=== PATIENT | male | born 1955 | race Caucasian/White ===

== ENCOUNTER → 2019-12-24 10:54 | Outpatient (BNVA) | payer MEDICARE, MEDICAID, SELFPAY | PROVIDERS: Family Provider Internal Medicine; PCP Internal Medicine; Visit Provider Specialist | DX: G40.309 Generalized idiopathic epilepsy and epileptic syndromes, not intractable, without status epilepticus (principal) | CPT/HCPCS: 99213 ==

== ENCOUNTER 2021-03-24 12:17 | Outpatient (CLI) | payer MEDICARE, MEDICAID, SELFPAY ==
--- NOTE | 2021-03-24 13:00 | MR_ITS ---
WS: [id number] MRI HEAD WITHOUT CONTRAST TECHNIQUE: Sagittal T1, T2 axial, T2 axial FLAIR, axial and coronal T1 images, axial susceptibility w eighted imaging, axial diffusion weighted images, and coronal T2 images were obtained. Patient unable to finish examination. Contrast was not administered. CLINICAL INFORMATION: R56.9 - Unspecified convulsions COMPARISON: MRI 2010. CT 2013 FINDINGS: No evidence of restricted diffusion to suggest acute ischemia. Ventricular system and basal cisterns are patent. Mild small vessel changes. Moderate to advanced parenchymal volume loss. Parenchymal volu me loss has progressed since 2010. No extra-axial fluid collections. No evidence of mass or mass effe ct. Normal posterior fossa. Normal vascular flow voids. No extra-axial fluid collections. No evidence of mass or mass effect. Mastoid air cells are well aerated. Mild mucosal thickening in the paranasal sin uses more prominent right maxillary sinus. Normal optic chiasm and pituitary infundibulum. Normal cav ernous sinuses and Meckel's cave. 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 No hemosiderin on susceptibly weighted images. MR/MR head wo con* [id number] IMPRESSION: 1. No evidence of restricted diffusion to suggest acute ischemia. 2. Mild small vessel changes. Moderate to advanced parenchymal volume loss pro gressed since 2010. 3. No hemosiderin on susceptibly weighted images. 4. 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 No signal abnormalities in the mesial temporal lobes. 5. Normal optic chiasm and pituitary infundibulum.
== END 2021-03-24 12:18 | disposition home or self-care (01) ==
LOC: RADSHAW 12:27
PROVIDERS: Family Provider Internal Medicine; PCP Internal Medicine; Visit Provider Internal Medicine
DX: R56.9 Unspecified convulsions (principal); G31.9 Degenerative disease of nervous system, unspecified
CPT/HCPCS: 70551

== ENCOUNTER 2021-07-08 16:01 | Outpatient (CLI) | payer MEDICARE, MEDICAID, SELFPAY ==
[2021-07-08 16:54] LABS: Carbamazepine Tegretol 5.9 ug/mL (4.0-12.0)
== END 2021-07-08 16:02 | disposition home or self-care (01) ==
LOC: LAB 16:06
PROVIDERS: PCP Internal Medicine; Visit Provider Internal Medicine
DX: G40.909 Epilepsy, unspecified, not intractable, without status epilepticus (principal)
CPT/HCPCS: 80156; 80184; 80201

== ENCOUNTER 2021-12-27 08:10 | Outpatient (CLI) | payer MEDICARE, MEDICAID, SELFPAY ==
--- NOTE | 2021-12-27 08:16 | FL_ITS ---
WS: [id number] FL barium swallow modifd [id number] REASON FOR EXAM: Other dysphagia FLUOROSCOPY TIME: 0.7 minutes FINDINGS: The swallowing of barium of varying consistencies was evaluated fluoroscopically with video recording . There was penetration of the contrast anterior to the epiglottis with both thin and thick consistency barium. No aspiration was identified. Detailed report of the swallowing evaluation will be rendered by the speech therapy department. FL/FL barium swallow modifd [id number] IMPRESSION: Barium swallow evaluation as above.
== END 2021-12-27 08:11 | disposition home or self-care (01) ==
PROVIDERS: PCP Internal Medicine; Visit Provider Internal Medicine
DX: R13.19 Other dysphagia (principal)
CPT/HCPCS: 74230; 92611

== ENCOUNTER 2022-03-23 09:29 | Emergency (ER) | payer MEDICARE, MEDICAID, SELFPAY ==
[2022-03-23] VITALS (8 sets, daily range): BP systolic 99–144; BP diastolic 68–97; PULSE 71–78; RESP 10–17; TEMP 36.9; O2SAT 94–100; BMI 24.0
--- NOTE | 2022-03-23 09:38 | W.ED.GENADLT ---
HPI - General Adult General: Chief complaint: Nausea/Vomiting/Diarrhea Stated complaint: MASS ON NECK/ DIFFICULTY SWALLOWING Time Seen by Provider: 03/23/22 09:32 Source: patient Mode of arrival: EMS Limitations: no limitations History of Present Illness: 58-year-old male presents emergency room via EMS from a local half-way. He has a obvious right-sided paralaryngeal mass he states its come up over the last several weeks. He did have some difficulty swallowing in December and had a barium swallow study that appears to been read as normal on the chart. He denies any hematemesis coffee-ground emesis he still is able to swallow although he had a little bit of difficulty this morning which is what precipitated the half-way calling EMS and sending him to the emergency room. He denies any cough or shortness of breath at this time he does have a rather hoarse voice but states that that is unchanged from his baseline. He is a former smoker denies any history of chewing tobacco. He quit smoking several decades ago. Onset (ago): week(s) Location: neck Radiation: non-radiation Severity: moderate Relieving factors: none Exacerbating factors: none Associated symptoms: Reports cough; Deny chest pain, confusion, diaphoresis, decreased appetite, dyspnea, fevers/chills, headache(s), malaise, nausea, rash, palpitations, seizures, short of breath, syncope, vomiting or weakness Treatments prior to arrival: none Review of Systems Const: Denies: fever(s), chills, body aches, malaise or diaphoresis ENMT: Reports: hoarseness; Denies: throat pain, uvular edema, enlarged tonsils, odynophagia, mouth pain, swelling of lips/tongue, oral sores, bleeding gums, ear or mastoid pain, nasal discharge or nasal congestion Card: Denies: chest pain, palpitations or syncope Resp: Denies: dyspnea GI: Denies: abdominal pain, nausea, vomiting, hematemesis, coffee ground emesis, dysphagia, heartburn, early satiety, diarrhea, constipation, bloating or GI cramping : Denies: flank pain, difficulty urinating, dysuria, urinary frequency or urinary urgency Musc: Denies: neck pain Skin/Breast: Denies: rash or pruritus Neuro: Denies: headache(s), numbness in extremities, weakness in extremities or confusion PFSH ED PFSH: Medical History (Updated 03/23/22 @ 12:32 by Calderon Wagner DO) Hypertension Stroke Family History Other CAD (coronary artery disease) Cancer Diabetes Hypertension Stroke Social History Smoking and tobacco status: former smoker Quit status (tobacco): has quit using tobacco Year quit tobacco: 2013 Alcohol intake: never History of recent travel: No Physical Exam Const: COMMON NORMALS: no acute distress GENERAL APPEARANCE: cooperative and comfortable ORIENTATION/CONSCIOUSNESS: Yes awake, Yes oriented to person, Yes oriented to place and Yes oriented to time HENMT: COMMON NORMALS: normocephalic, atraumatic and hearing grossly normal bilaterally HEAD & SCALP: normocephalic and atraumatic THROAT: no uvular edema Neck/C-Spine: COMMON NORMALS: no JVD and Thyroid normal GENERAL: No lymphadenopathy and Yes Mass present (neck) right (Paralaryngeal) THYROID: Thyroid normal Resp: COMMON NORMALS: normal respiratory effort, No retractions, No use of accessory muscles and clear to auscultation bilaterally AUSCULTATION: clear to auscultation bilaterally Cardio: COMMON NORMALS: no JVD, regular rate, regular rhythm and No murmurs present (Cardio) RATE: regular rate RHYTHM: regular rhythm GI: COMMON NORMALS: Soft to palpation and No hepatosplenomegaly present AUSCULTATION: Yes normoactive bowel sounds PALPATION: Yes Soft to palpation, No Tenderness to palpation present (GI), No Guarding due to palpation present (GI) and Yes No hepatosplenomegaly present Extremity: COMMON NORMALS: normal to inspection, capillary refill normal, no clubbing, cyanosis or edema, no calf tenderness and no pedal edema Neuro: SENSORIUM/ORIENTATION: Yes oriented to person, Yes oriented to place and Yes oriented to time Skin: COMMON NORMALS: no rashes or lesions noted GENERAL SKIN EXAM: no rashes or lesions noted Course Vital Signs: Vital signs: Vital Signs Temperature 98.4 F 03/23/22 09:35 Pulse Rate 71 03/23/22 10:43 Respiratory Rate 16 03/23/22 10:43 Blood Pressure 119/85 03/23/22 10:43 Pulse Oximetry 94 03/23/22 10:43 MDM - General Adult Medical Decision Making CT of the neck shows cystic mass suspicious for tumor. Does not impinge on airway or on the esophagus or any vascular structures. Patient doing well at this time will discharge home follow-up with ENT for further evaluation Medical Records I reviewed the patient's medical records. Lab Data I reviewed the patient's lab results. : 03/23/22 09:48 03/23/22 10:[address] 03/23/22 09:42 IMPRESSION: 1. Peripherally enhancing low-attenuation cystic or necrotic RIGHT neck mass posterior to the RIGHT submandibular gland and anterior to the sternocleidomastoid measuring 2.8 x 2.1 x 2.1 cm highly suspicious for malignancy or necrotic lymph node measuring patient this age. Less likely an infected 2nd branchial cleft cyst can give a similar appearance but neoplasm should be excluded primarily in a patient this age 2. 2 additional smaller surrounding enhancing lesions measuring 9-10 mm respectively at the apex of the lesion support suspicion for neoplasm. Recommend ENT consultation. 3. No other visualized neck mass or lymphadenopathy considering limitations. 4. Limited evaluation of the oropharynx and supraglottic larynx due to beam hardening artifact and positioning due to marked kyphosis. 5. Bilateral thyroid nodules LEFT greater than RIGHT. This can be followed with ultrasound on an elective basis. 6. Moderate bilateral carotid bulb calcification RIGHT greater than LEFT. 7. Inspissated secretions in the RIGHT maxillary sinus. Notified Calderon Wagner DO at 03/23/2022 12:34 PM. Laboratory Results WBC 6.6 10^3/uL (4.0-10.0) 03/23/22 09:48 RBC 4.75 10^6/uL (4.1-5.3) 03/23/22 09:48 Hgb 14.7 g/dL (11.7-16.6) 03/23/22 09:48 Hct 44.5 % (42.0-52.0) 03/23/22 09:48 MCV 93.7 fl (80-94) 03/23/22 09:48 MCH 30.9 pg (28.0-34.0) 03/23/22 09:48 MCHC 33.0 g/dL (30.0-36.0) 03/23/22 09:48 RDW 12.2 % (12.1-15.1) 03/23/22 09:48 Plt Count 248 10^3/cmm (130-400) 03/23/22 09:48 MPV 8.9 fL (7.4-10.4) 03/23/22 09:48 Neut % (Auto) 71.7 % 03/23/22 09:48 Lymph % (Auto) 18.3 % 03/23/22 09:48 [place] % (Auto) 8.4 % 03/23/22 09:48 Eos % (Auto) 0.8 % 03/23/22 09:48 Baso % (Auto) 0.5 % 03/23/22 09:48 Neut # (Auto) 4.70 10^3/uL (1.8-7.7) 03/23/22 09:48 Lymph # (Auto) 1.2 10^3/uL (0.8-4.8) 03/23/22 09:48 [place] # (Auto) 0.6 10^3/uL (0.2-0.9) 03/23/22 09:48 Eos # (Auto) 0.1 10^3/uL (0.0-0.8) 03/23/22 09:48 Baso # (Auto) 0.0 10^3/uL (0.0-0.1) 03/23/22 09:48 Nucleated RBC % (auto) 0 % 03/23/22 09:48 Nucleated RBCs # 0.0 /100WBC 03/23/22 09:48 Sodium 136 mmol/L (136-145) 03/23/22 10:48 Potassium 3.8 mmol/L (3.5-5.1) 03/23/22 10:48 Chloride 99 mmol/L (98-107) 03/23/22 10:48 Carbon Dioxide 24 mmol/L (22-29) 03/23/22 10:48 Anion Gap 16.8 (5-19) 03/23/22 10:48 BUN 10 mg/dL (8-23) 03/23/22 10:48 Creatinine 0.8 mg/dL (0.7-1.2) 03/23/22 10:48 GFR Calculation 96.1 mL/min (90-130) 03/23/22 10:48 Glucose 96 mg/dL (65-115) 03/23/22 10:48 Calculated Osmolality 281 mOsm/kg (285-295) L 03/23/22 10:48 Calcium 9.4 mg/dL (8.5-10.5) 03/23/22 10:48 Total Bilirubin 0.4 mg/dL (0.15-1.2) 03/23/22 10:48 AST 27 U/L (0-40) 03/23/22 10:48 ALT 24 U/L (0-41) 03/23/22 10:48 Alkaline Phosphatase 164 IU/L (40-130) H 03/23/22 10:48 Total Protein 7.6 g/dL (6.6-8.7) 03/23/22 10:48 Albumin 4.0 g/dL (3.5-5.2) 03/23/22 10:48 Globulin 3.6 g/dL (1.3-4.6) 03/23/22 10:48 Carbamazepine 5.2 ug/mL (4.0-12.0) 03/23/22 10:48 Phenobarbital 23.1 ug/mL (10-30) 03/23/22 10:48 Discharge Plan Discharge Patient Disposition: Home Clinical Impression: Mass of right side of neck Condition: Stable Prescriptions: No Action nystatin 100,000 unit/mL suspension 10 ml buccal DAILY Qty: 480 0RF fluticasone propionate [Flonase Allergy Relief] 50 mcg/actuation spray,suspension 1 spray intranasal BID Qty: 16 0RF Rx Instructions: administer into each nostril Chloraseptic Max Sore Throat 1.5-33 % spray,non-aerosol 1 spray mucous membrane Q2H PRN (Reason: sore throat) Qty: 30 0RF Rx Instructions: leave on area for 15 seconds then spit out doxycycline monohydrate 100 mg capsule 100 mg PO BID 7 Days Qty: 14 0RF fidaxomicin 200 mg tablet 200 mg PO Q12H 10 Days Qty: 20 0RF phenobarbital 64.8 mg tablet 64.8 mg PO BID Qty: 60 3RF carbamazepine [Tegretol] 200 mg tablet 200 mg PO TID Qty: 90 2RF citalopram [Celexa] 20 mg tablet 20 mg PO DAILY Qty: 30 2RF topiramate [Topamax] 100 mg tablet 100 mg PO BID Qty: 60 2RF gabapentin [Neurontin] 600 mg tablet 600 mg PO BID Qty: 60 2RF Discharge Orders: Discharge ED (Routine); Ordered 03/23/22 Ordered By: Calderon Wagner Referrals: Dennis Helton MD [Primary Care Provider] - Discharge Diet: Usual diet Discharge Activity: Resume usual activity Patient Instructions: Opioid Safety Activity Restrictions/Additional Instructions: manager business banking will make arrangements for follow-up with ENT for further evaluation of the mass. Coding Level of Care Code ED Resident Services Director for Chg Fwd Exam Comprehensive
--- NOTE | 2022-03-23 09:42 | CT_ITS ---
WS: [id number] CT NECK TECHNIQUE: Contrast-enhanced CT of the neck with coronal and sagittal reformatted images. CLINICAL INFORMATION: R paralyngeal mass COMPARISON: None. DLP: 471.[address] scans at [facility] use at least one of these dose optimization techniques: automated e xposure control; mA and/or kV adjustment per patient size (includes targeted exams where dose is matc hed to clinical indication); or iterative reconstruction. FINDINGS: Peripherally enhancing cystic or necrotic lesion posterior to the RIGHT submandibular gland and anter ior to the RIGHT sternocleidomastoid with peripheral rim enhancement. This measures approximately 2.8 x 2.1 x 2.1 cm AP by transverse by craniocaudal. Images are limited due to marked patient kyphosis a nd positioning. Minimal mass effect on the RIGHT hypopharynx. No critical pharyngeal stenosis. Additional smaller peripheral enhancing satellite lesions along the apex of the mass measuring 10 and 9 mm respectively. Images are degraded at the tongue base due to beam hardening artifact and positio arvind. Chronic emphysematous changes in the lung apices. Inspissated secretions in the RIGHT maxillary sinus . Secretions in the LEFT sphenoid sinus. Mastoid air cells are well aerated. Partially visualized int racranial contents appear normal for age. Intracranial vascular calcification. Moderate RIGHT greater than LEFT carotid bulb calcification. No left-sided cervical lymphadenopathy. No other visualized en larged lymph nodes. Heterogeneous low-attenuation lesion LEFT thyroid measuring 1.7 CM. This can be followed up with ultr asound on an elective basis. Small enhancing lesion RIGHT thyroid measuring 9 mm. Normal visualized parapharyngeal fat considering limitations. Normal visualized posterior nasopharynx . Limited visualization of the posterior oropharynx due to artifact. Epiglottis appears grossly yamilet l. Normal subglottic airway. Advanced thoracic kyphosis. CT/CT neck w con* [id number] IMPRESSION: 1. Peripherally enhancing low-attenuation cystic or necrotic RIGHT neck mass p osterior to the RIGHT submandibular gland and anterior to the sternocleidomasto id measuring 2.8 x 2.1 x 2.1 cm highly suspicious for malignancy or necrotic ly mph node measuring patient this age. Less likely an infected 2nd branchial clef t cyst can give a similar appearance but neoplasm should be excluded primarily in a patient this age 2. 2 additional smaller surrounding enhancing lesions measuring 9-10 mm respec tively at the apex of the lesion support suspicion for neoplasm. Recommend ENT consultation. 3. No other visualized neck mass or lymphadenopathy considering limitations. 4. Limited evaluation of the oropharynx and supraglottic larynx due to beam juan rdening artifact and positioning due to marked kyphosis. 5. Bilateral thyroid nodules LEFT greater than RIGHT. This can be followed wit h ultrasound on an elective basis. 6. Moderate bilateral carotid bulb calcification RIGHT greater than LEFT. 7. Inspissated secretions in the RIGHT maxillary sinus. Notified Calderon Wagner DO at 03/23/2022 12:34 PM.
[2022-03-23 10:06] LABS: Basophils % 0.5 %; Eosinophils # 0.1 10^3/uL (0.0-0.8); Eosinophils % 0.8 %; Hematocrit 44.5 % (42.0-52.0); Hemoglobin 14.7 g/dL (11.7-16.6); Lymphocytes # 1.2 10^3/uL (0.8-4.8); Lymphocytes % 18.3 %; Mean Corpuscular Hemoglobin 30.9 pg (28.0-34.0); Mean Corpuscular Volume 93.7 fl (80-94); Mean Platelet Volume 8.9 fL (7.4-10.4); Monocytes # 0.6 10^3/uL (0.2-0.9); Monocytes % 8.4 %; Neutrophils % 71.7 %; Nucleated Red Blood Cells % 0 %; Platelet Count 248 10^3/cmm (130-400); Red Blood Count 4.75 10^6/uL (4.1-5.3); Red Cell Distribution Width 12.2 % (12.1-15.1); White Blood Count 6.6 10^3/uL (4.0-10.0)
[2022-03-23 11:32] LABS: Alanine Aminotransferase 24 U/L (0-41); Alkaline Phosphatase 164 IU/L (40-130); Aspartate Amino Transferase 27 U/L (0-40); Blood Urea Nitrogen 10 mg/dL (8-23); Calcium 9.4 mg/dL (8.5-10.5); Carbon Dioxide 24 mmol/L (22-29); Chloride 99 mmol/L (98-107); Globulin 3.6 g/dL (1.3-4.6); Glomerular Filtration Rate 96.1 mL/min (90-130); Glucose 96 mg/dL (65-115); Osmolality Calculated 281 mOsm/kg (285-295); Sodium 136 mmol/L (136-145); Total Bilirubin 0.4 mg/dL (0.15-1.2); Total Protein 7.6 g/dL (6.6-8.7)
[2022-03-23 11:36] LABS: Anion Gap 16.8 (5-19); Potassium 3.8 mmol/L (3.5-5.1)
[2022-03-23] MEDS: iohexol 350 mg/mL 100 mL Btl IV (12:05)
[2022-03-23 12:42] LABS: Carbamazepine Tegretol 5.2 ug/mL (4.0-12.0)
--- NOTE | 2022-03-23 13:16 | PC.NURSE ---
report to Cierra CONTE at [facility] mentioned that sending him to the ED will speed up his appointment now.
--- NOTE | 2022-03-23 14:05 | PC.NURSE ---
patient continues to wait on transport - called at approx 1300
--- NOTE | 2022-03-24 22:42 | DCPLANNER ---
Addendum entered by Abigail Barlow 04/07/22 14:13: Patient had a follow up appointment scheduled for 03.28.22 with ENT - patient did attend appointment. Original Note: partnership manager had message to schedule a follow up appointment for patient with ENT. partnership manager sent patients information to the front office staff of ENT. Patients information will be printed and reviewed. Clinic will call patient with appointment information.
== END 2022-03-23 15:00 | disposition home or self-care (01) ==
PROVIDERS: Emergency Provider Family Medicine; PCP Internal Medicine
DX: R22.1 Localized swelling, mass and lump, neck (principal); I10 Essential (primary) hypertension; Z87.891 Personal history of nicotine dependence; Z86.73 Personal history of transient ischemic attack (TIA), and cerebral infarction without residual deficits
CPT/HCPCS: 70491; 80053; 80156; 80184; 85025; 99283; Q9967

== ENCOUNTER → 2022-03-28 14:25 | Outpatient (BNVA) | payer MEDICARE, MEDICAID, SELFPAY | PROVIDERS: PCP Internal Medicine; Visit Provider Otolaryngology | DX: R22.1 Localized swelling, mass and lump, neck (principal); M40.209 Unspecified kyphosis, site unspecified; Z87.891 Personal history of nicotine dependence | CPT/HCPCS: 99204 ==

== ENCOUNTER 2022-04-13 11:04 | Day surgery (SDC) | payer MEDICARE, MEDICAID, SELFPAY ==
[2022-04-11 10:24] VITALS: BMI 24.7
[2022-04-13] VITALS (7 sets, daily range): BP systolic 102–142; BP diastolic 68–89; PULSE 69–85; RESP 14–18; TEMP 36.3–36.6; O2SAT 90–98
--- NOTE | 2022-04-13 11:48 | US_ITS ---
WS: [id number] ULTRASOUND-GUIDED RIGHT NECK MASS BIOPSY. INDICATION: RIGHT neck mass TECHNIQUE: Prior imaging was reviewed. The procedure including risks, benefits, and complications wer e discussed with the patient who agreed to proceed. Timeout was performed and all team members verifi ed. Using sterile technique, patient was prepped and draped in usual sterile fashion. After 1% lidoca ine, in combination with conscious sedation, multiple core biopsies were obtained with initially a 20 -gauge followed by 18-gauge Temno biopsy device. No immediate complications. Pathology is pending. US/US biopsy muscle IMPRESSION: 1. Uncomplicated RIGHT neck mass ultrasound-guided biopsy with multiple core b iopsies obtained 2. Pathology is pending.
[2022-04-13] MEDS: sodium chloride 0.9% 1,000 ML 30 ML IV (12:11)
[2022-04-13 13:06] LABS: INR 1.21 (0.8-1.2)
[2022-04-13] MEDS: fentaNYL 50 mcg/mL INJ 2mL 25 MCG IVP (13:19)
[2022-04-13] MEDS: midazolam 1 mg/mL INJ 2 mL IVP (13:20)
[2022-04-15 14:30] LABS: Leukemia Profile (BBPL) See Report; Lymphoma Profile (BBPL) See Report
== END 2022-04-13 14:13 | disposition home or self-care (01) ==
PROVIDERS: Otolaryngology; Radiology Neuroradiology; PCP Internal Medicine; Visit Provider Internal Medicine
DX: R22.1 Localized swelling, mass and lump, neck (principal)
CPT/HCPCS: 20206; 36415; 38505; 76942; 85610; 88184; 88185; 88309; 96374; J2250; J3010; J7030

== ENCOUNTER → 2022-05-04 09:34 | Outpatient (BNVA) | payer MEDICARE, MEDICAID, SELFPAY | PROVIDERS: PCP Internal Medicine; Visit Provider Otolaryngology | DX: R22.1 Localized swelling, mass and lump, neck (principal); M40.209 Unspecified kyphosis, site unspecified; Z87.891 Personal history of nicotine dependence | CPT/HCPCS: 99215 ==

== ENCOUNTER 2022-05-19 08:45 | Day surgery (SDC) | payer MEDICARE, MEDICAID, SELFPAY ==
[2022-05-11 14:48] VITALS: BMI 24.7
[2022-05-19] VITALS (9 sets, daily range): BP systolic 107–146; BP diastolic 68–82; PULSE 75–85; RESP 13–18; TEMP 36.2–36.7; O2SAT 91–95
--- NOTE | 2022-05-19 09:55 | W.PM.OPSUD ---
Surgery/Procedure H&P Update DATE OF PROCEDURE: May 19, 2022 DATE H&P PERFORMED: 05/04/22 H&P UPDATE INFORMATION: I have reviewed H&P completed within last 30 days, I have examined patient prior to procedure and No changes to prior documentation CHANGES TO PREVIOUS DOCUMENTATION: No changes PREOP DIAGNOSIS: Right neck mass PRIMARY INDICATION FOR PROCEDURE: Multiple right neck masses consistent with lymph nodes possibly with necrosis. PLANNED PROCEDURE: Operation Date: 05/19/22 10:35 Proposed Procedures p open excisional biopsy of right sided neck mass [id number],R22.1(Right) - Nikunj Bond MD
[2022-05-19] MEDS: sodium chloride 0.9% 1,000 ML 30 ML IV (10:00)
--- NOTE | 2022-05-19 10:05 | ANES.PREANE2 ---
Pre-Anesthetic Assessment Height/Weight: Height 1.73 m Weight 73.936 kg Temp Pulse Resp BP Pulse Ox 98.1 F 84 18 107/78 95 05/19/22 09:35 05/19/22 09:35 05/19/22 09:35 05/19/22 09:35 05/19/22 09:35 Preop Diagnosis: Right neck mass Operation Date: 05/19/22 10:35 Proposed Procedures p open excisional biopsy of right sided neck mass [id number],R22.1(Right) - Nikunj Bond MD Familial anesthetic complications: None Was Beta Winston taken within 24 hours: N/A Was Clonidine taken within 24 hours: N/A Last intake: Intake Last Liquid Date 05/18/22 Last Liquid Time 20:00 Last Solid Date 05/18/22 Last Solid Time 20:00 Social No alcohol and No tobacco Exam alert, oriented x 3 and regular rate & rhythm coarse breath sounds b/l - patient denies SOB, fever, malaise or pre-existing lung issues Airway Mallampati: Class IV Dentition: other (no teeth) Pulmonary None reported CV/HEM Hypertension Musc/skel severe kyphosis Neuropsych Seizure Anesthetic Plan ASA status: 3 Anesthesia: General Risk of > 500 ml blood loss (7ml/kg in children): No Medications/Allergies Home Medications Medication Instructions Recorded Confirmed Last Taken Type phenobarbital 64.8 mg tablet 64.8 mg PO BID #60 tab 10/14/20 05/11/22 04/12/22 Rx carbamazepine 200 mg tablet 200 mg PO TID #90 tab 10/21/20 05/11/22 04/12/22 Rx (Tegretol) gabapentin 600 mg tablet 600 mg PO BID #60 tab 10/21/20 05/11/22 04/12/22 Rx (Neurontin) topiramate 100 mg tablet (Topamax) 100 mg PO BID #60 tab 10/21/20 05/11/22 04/12/22 Rx citalopram 20 mg tablet (Celexa) 40 mg PO DAILY 04/11/22 05/11/22 04/12/22 History fluticasone propionate 50 1 spray INTRANASAL BEDTIME 04/11/22 05/11/22 04/12/22 History mcg/actuation nasal spray,suspension (Flonase Allergy Relief) potassium chloride 20 mEq 20 meq PO DAILY 04/11/22 05/11/22 04/12/22 History tablet,extended release(part/cryst) acetaminophen 325 mg tablet 325 mg PO QID PRN 05/11/22 05/11/22 Unknown History (Tylenol) bisacodyl 10 mg rectal suppository 10 mg VA DAILY PRN 05/11/22 05/11/22 Unknown History bisacodyl 5 mg tablet 5 mg PO DAILY PRN 05/11/22 05/11/22 Unknown History guaifenesin 100 mg/5 mL oral liquid 200 mg PO Q4H PRN 05/11/22 05/11/22 Unknown History magnesium hydroxide 400 mg/5 mL 30 ml PO DAILY PRN 05/11/22 05/11/22 Unknown History oral suspension (Milk of Magnesia) sodium phosphates 19 gram-7 118 ml VA DAILY 05/11/22 05/11/22 Unknown History gram/118 mL enema (Fleet Enema) Allergies Allergy/AdvReac Type Severity Reaction Status Date / Time hydroxyzine Allergy Unknown Verified 05/04/22 10:28 chlorpromazine AdvReac mood Verified 05/04/22 10:28 [From Thorazine] [facility] Anesthesia Medical History (Updated 05/04/22 @ 10:50 by Nikunj Bond MD) Hypertension Stroke Family History Other CAD (coronary artery disease) Cancer Diabetes Hypertension Stroke Social History Smoking and tobacco status: former smoker Quit status (tobacco): has quit using tobacco Year quit tobacco: 2013 Alcohol intake: never History of recent travel: No Data Anesthesia Cardiac Studies: No Data to Display
[2022-05-19 10:08] LABS: Glucose Point of Care 99 mg/dL (70-110)
--- NOTE | 2022-05-19 10:36 | SUR.OPER ---
1036 3.4ml of 2% lidocaine with 1:100,000 epi injected into pt neck by dr titus
--- NOTE | 2022-05-19 11:33 | P.OP_ITS ---
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 Post-op findings: Multiple masses consistent with lymph nodes with significant necrosis. Scarred and adherent and invasive to multiple structures including right marginal mandibular branch of the facial nerve. Procedure done: Excision of right neck mass. Debridement of necrotic material within multiple masses. Implants: Quarter inch [place] drain Specimens removed/disposition: Portion of matted scarred right neck mass with extracapsular invasion Pathology: Metastatic invasive keratinizing squamous cell carcinoma Surgeon: Niuknj Bond MD Anesthesia: General and Local Estimated blood loss: 25 mL Findings: Matted scarred multiple lymph nodes with necrotic centers and evidence of extracapsular invasion adherent and encompassing the marginal mandibular branch of the facial nerve and down to the great vessels medially and invasive into sternocleidomastoid muscle and digastric muscle. Brief History: 66-year-old male patient with expanding right neck mass found on CT scan. The patient is being brought to the operating room at this time to undergo potential excision of right neck mass or masses for diagnostic purposes. The procedure its risks and complications were explained in the office setting. These risks included bleeding infection numbness scarring swelling bruising weakness or paralysis of nerves involving the lower face and lip tongue voicebox and shoulder. More serious risk such as heart attack or stroke or not surviving the surgery were also discussed. They understand that this is a diagnostic procedure only. Not a definitive or curative procedure. Procedure: Description of procedure: The patient was placed on the operating table in the supine position. Adequate general endotracheal tube anesthesia was obtained. He was given Ancef IV for prophylaxis. A timeout was accomplished identifying the patient date of plan procedure allergies fire risk and medications given. With all in agreement the procedure continued. He was repositioned into a semirecumbent position with his neck exposed on the right side. The sinus site was noted. This was cleansed with alcohol and 3.4 mL of 2% Xylocaine with 1-100,000 epinephrine was used to infiltrate the planned incision line. The patient was then prepped and draped in usual fashion. A marking pen was then used to outline the curvilinear incision extending up near the mastoid tip and then down into the neck anterior to the sternocleidomastoid muscle at its lowest point. The incision was created with cut mode of the Bovie on low setting. This was carried down to the subcutaneous tissue and the coagulation mode was used to dissect down through the platysma muscle. A subplatysmal flap was raised superiorly and it was immediately evident that this neck mass was invading into the muscle of the sternocleidomastoid and platysma muscle. Dissection was carried anterior to the leading edge of the sternocleidomastoid muscle which was covered in adherent tissue and scar and fibrosis and extension outside of the lymph node directly. Capsule was invaded through and the mass was extending into the sternocleidomastoid muscle medially. A cavity was entered into that contained approximately 30 mL of necrotic whitish-yellow debris. No pus was seen. As further dissection was carried out it was evident that this necrotic mass extended right down onto the great vessels medially. With dissection carried more superiorly it was evident that the mass was extending and surrounding the marginal mandibular branch of the facial nerve. It was not possible to remove this without a dehiscence of the nerve. The tissue was carefully removed as much as possible and 2 large segments of tissue and some of the necrotic debris was sent for frozen section diagnosis. While this was pending hemostasis was attained with cautery. The area was irrigated with sterile water. The frozen section diagnosis returned as metastatic keratinizing invasive squamous cell carcinoma. The wound was then checked for any active bleeding. None was seen. 1/4 inch Andree drain was cut and placed at the depths of the defect and what was one of the necrotic cavities of the largest mass. That was adjacent to the great vessels. This was sutured to the neck with a staple inferiorly. The wound was closed in 3 layers using interrupted 4-0 chromic to close the platysma layer and then the subcutaneous layer. Then the skin was closed with skin dank. Neosporin ointment was applied followed by Kerlix fluffs and then 2 Kerlix rolls circumferentially around the neck with appropriate pressure. Then the drapes were removed from the patient the patient was returned to anesthesia and he was extubated and brought to recovery in stable condition.
--- NOTE | 2022-05-19 14:05 | SUR.PHASEII ---
[facility] CALLED , AND REPORT GIVEN TO NURSING STAFF MEMBER. CLEAR LIQUIDS TODAY AND PROGRESS TO SOFT DIET TOMORROW.
--- NOTE | 2022-05-19 14:49 | ANE.PACU2 ---
Inpatient post-anesthesia follow up: Airway intact: Yes Vital signs: Temperature 98.1 F Pulse Rate 75 Respiratory Rate 16 Blood Pressure 125/77 Pulse Oximetry 94 Oxygen Delivery Me thod Room Air Oxygen Flow Rate 6 Fraction of Inspir ed Oxygen Hydration adequate: Yes Nausea and vomiting: No Pain level: 1 Mental status: Baseline
== END 2022-05-19 13:55 | disposition home or self-care (01) ==
PROVIDERS: PCP Internal Medicine; Visit Provider Otolaryngology
PROC: (CPT 21555; principal; 2022-05-19 10:35)
DX: C44.42 Squamous cell carcinoma of skin of scalp and neck (principal); I10 Essential (primary) hypertension; Z86.73 Personal history of transient ischemic attack (TIA), and cerebral infarction without residual deficits; Z87.891 Personal history of nicotine dependence; Z83.3 Family history of diabetes mellitus; M40.209 Unspecified kyphosis, site unspecified
CPT/HCPCS: 21555; 36416; 82962; 88309; 88331; J1100; J2405; J2704; J3010; J3490; J7030

== ENCOUNTER → 2022-05-25 14:18 | Outpatient (BNVA) | payer MEDICARE, MEDICAID, SELFPAY | PROVIDERS: PCP Internal Medicine; Visit Provider Otolaryngology | DX: C32.1 Malignant neoplasm of supraglottis (principal); C77.0 Secondary and unspecified malignant neoplasm of lymph nodes of head, face and neck; Z87.891 Personal history of nicotine dependence | CPT/HCPCS: 31575; 99024 ==

== ENCOUNTER → 2022-05-30 15:32 | Outpatient (BNVA) | payer MEDICARE, MEDICAID, SELFPAY | PROVIDERS: PCP Internal Medicine; Visit Provider Otolaryngology | DX: C32.1 Malignant neoplasm of supraglottis (principal); C77.0 Secondary and unspecified malignant neoplasm of lymph nodes of head, face and neck; Z87.891 Personal history of nicotine dependence | CPT/HCPCS: 99024 ==

== ENCOUNTER 2022-06-08 13:46 | Oncology outpatient (recurring) (ONCR) | payer MEDICARE, MEDICAID, SELFPAY | END 2022-06-08 23:59 | disposition home or self-care (01) | PROVIDERS: PCP Internal Medicine; Visit Provider Internal Medicine Medical Oncology | DX: C32.1 Malignant neoplasm of supraglottis (principal); F17.210 Nicotine dependence, cigarettes, uncomplicated; Z86.73 Personal history of transient ischemic attack (TIA), and cerebral infarction without residual deficits; Z79.899 Other long term (current) drug therapy; I10 Essential (primary) hypertension | CPT/HCPCS: 99205 ==

== ENCOUNTER 2022-06-15 13:04 | Oncology outpatient (recurring) (ONCR) | payer MEDICARE, MEDICAID, SELFPAY ==
--- NOTE | 2022-06-15 15:43 | N.ONRAD NP_ITS ---
Radiation Oncology New Patient Visit Patient: Tera Zhu MR#: [id number] : 1955> Age: 66> Sex: Male> Dictated by: Dr. 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 Radiotherapy to date: Summary > No prior radiation therapy. Chief Complaint / History of Present Illness: Mr. Zhu is a 66-year-old man who presented in March 2022 with a several month history of a sore throat and a recent history of a mass in the right side of the neck. His neck CT showed cystic and necrotic lymphadenopathy posterior to the right submandibular gland and anterior to the right sternocleidomastoid. There were other suspicious small masses. He underwent an ultrasound-guided biopsy of the neck that did not render a diagnosis. On 05/19/2022 the right neck mass was excised. Matted, scarred, necrotic lymph nodes were encountered. The lymphadenopathy encompassed the marginal mandibular branch of the facial nerve and extended down medially to the great vessels and invaded the sternocleidomastoid and digastric muscles. Pathology from the procedure showed moderate to poorly differentiated squamous cell carcinoma with extensive necrosis. On 05/25/2022 he underwent a flexible laryngoscopy which showed a large exophytic mass involving the supraglottis on the right. The the mass crossed the midline posteriorly. The right piriform sinus was obstructed. A PET was performed which showed the mass in the supraglottis and hypopharynx. Only inflammation was noted in the right neck. A left thyroid nodule was FDG positive and it was recommended that a follow-up ultrasound to be done. No cervical lymphadenopathy or distant metastases seen. Mr. Zhu saw Dr. Lockhart on 06/08/2022. He declined any aggressive treatment. He said he would consider a PEG tube and tracheostomy. [facility] a [facility] and [place] back to the [facility]; a few days later we received a phone call that he would like to consider chemoradiation. He is seen today in consultation. Currently the patient states that he cannot swallow his saliva. He demonstrated that multiple times during the evaluation. He tells me that he cannot swallow liquids or food, but he does not appear dehydrated or malnourished. He says that he takes his medication with applesauce or liquid. He says the medicine does not go down. His and a insurance sales representative from [facility] are with him. They did not offer any opinion or conclusions about whether he can swallow anything or not. Current Medications: Tylenol, bisacodyl, Tegretol, Celexa, Flonase, gabapentin, guaifenesin, magnesium hydroxide, oxycodone 03/22/2025, phenobarbital, potassium, sodium phosphate Fleet enema, Topamax. Allergies: Hydroxyzine and chlorpromazine. Medical History: No history of collagen vascular disease. No previous radiation therapy. Hypertension, seizure disorder, stroke, Surgical History: Hip fracture. Confined to wheelchair. Recent surgery noted in history of present illness. Family History: Social History: Current Complaints / Review of Systems: . Vital Signs: Performed on 06/15/2022 1:08 PM BMI - 23.112 kg/m2 (high), Height - 68 in, Weight - 152.0 lbs, Temperature - 97.6 f, Pulse - 87 /min, Respiration - 18 /min, O2 Sat - 96 %, Pain - 0, Fatigue - 0 and BP - 142/ 94 mm(hg)(high). Physical Exam: General alert, oriented, no acute distress. His speech is normal. He appears chronically ill and is confined to a wheelchair. Neck supple. No masses. In the right submandibular area where he had surgery, he has very mild induration. No suspicious masses or lymphadenopathy. Oral cavity exam reveals him to be edentulous. No lesions seen. Lungs: Normal to percussion. On auscultation no rales, rhonchi, or wheezes. Breath sounds are diminished bilaterally. Heart: Rhythm regular. No murmur, gallop, rub. Abdomen: No distention. No organomegaly or mass or tenderness. 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 The gross lymph nodes in the right neck have been removed. Recent PET scan was only positive in the area of the primary cancer. There is a thyroid nodule that needs to be evaluated with an ultrasound. I discussed chemotherapy and radiation. Reviewed a 7-week course of radiation. Lawyer Criminal from the [facility] said transportation will not be a problem. I discussed the side effects and possible complications. I particularly discussed the severe sore throat, loss of taste, and dry mouth. Mr. Zhu wishes to proceed with treatment. Plan: Simulation will be scheduled. Signed by: 06/15/2022 3:41:35 PM <<Signature on File>> Time spent with patient: CPT Code: CPT Code:
== END 2022-06-19 23:59 | disposition home or self-care (01) ==
PROVIDERS: Absent Provider Internal Medicine Medical Oncology; PCP Internal Medicine; Visit Provider Specialist
DX: C32.1 Malignant neoplasm of supraglottis (principal); C79.89 Secondary malignant neoplasm of other specified sites
CPT/HCPCS: 99203; 99204

== ENCOUNTER 2022-06-20 13:41 | Day surgery (SDC) | payer MEDICARE, MEDICAID, SELFPAY ==
[2022-06-20] VITALS (10 sets, daily range): BP systolic 117–150; BP diastolic 70–84; PULSE 68–98; RESP 16–18; TEMP 36.2–36.8; O2SAT 93–99
--- NOTE | 2022-06-20 | SCC_ITS ---
Procedure done: Mediport insertion 6.0 seconds of fluoroscopic guidance, for a cumulative dose of 0.38 mGy, was provided to Dr. Mcnamara by the radiology department. C-arm images of the chest were saved for the patient's permanent record. [facility]
--- NOTE | 2022-06-20 | SC_ITS ---
WS: [id number] C-ARM RADIOGRAPHS CHEST; 4 IMAGES HISTORY: PORT PLACEMENT COMPARISON: None available. Intraoperative imaging during Port-A-Cath placement. Port is been placed through the RIGHT subclavian vein. Position is difficult to confirm on this series of images. SC/C-arm FL for CVA 21228 IMPRESSION: Intraoperative imaging during Port-A-Cath placement.
--- NOTE | 2022-06-20 12:55 | ANES.PREANE2 ---
Pre-Anesthetic Assessment Height/Weight: Height 1.73 m Weight 68.719 kg Preop Diagnosis: Right neck mass Operation Date: 06/20/22 14:45 Proposed Procedures p placement of port a cath & 11762 peg tube placement 55137,C32.1(Not Applicable) - Kane Mcnamara DO s PEG Tube Insertion(Not Applicable) - Kane Mcnamara DO CV/HEM Hypertension Musc/skel severe kyphosis Neuropsych Seizure Anesthetic Plan ASA status: 3 Medications/Allergies Home Medications Medication Instructions Recorded Confirmed Last Taken Type phenobarbital 64.8 mg tablet 64.8 mg PO BID #60 tabs 10/14/20 06/17/22 05/18/22 Rx carbamazepine 200 mg tablet 200 mg PO TID #90 tabs 10/21/20 06/17/22 05/18/22 Rx (Tegretol) gabapentin 600 mg tablet 600 mg PO BID #60 tabs 10/21/20 06/17/22 05/18/22 Rx (Neurontin) topiramate 100 mg tablet (Topamax) 100 mg PO BID #60 tabs 10/21/20 06/17/22 05/18/22 Rx citalopram 20 mg tablet (Celexa) 40 mg PO DAILY 04/11/22 06/17/22 05/18/22 History fluticasone propionate 50 1 spray intranasal BEDTIME 04/11/22 06/17/22 05/18/22 History mcg/actuation nasal spray,suspension (Flonase Allergy Relief) potassium chloride 20 mEq 20 meq PO DAILY 04/11/22 06/17/22 05/18/22 History tablet,extended release(part/cryst) acetaminophen 325 mg tablet 325 mg PO QID PRN Pain 05/11/22 06/17/22 05/18/22 History (Tylenol) bisacodyl 10 mg rectal suppository 10 mg KS DAILY PRN Constipation 05/11/22 06/17/22 05/18/22 History guaifenesin 100 mg/5 mL oral liquid 100 mg PO Q4H PRN cough 05/11/22 06/17/22 05/18/22 History magnesium hydroxide 400 mg/5 mL 30 ml PO DAILY PRN Constipation 05/11/22 06/17/22 05/18/22 History oral suspension (Milk of Magnesia) sodium phosphates 19 gram-7 118 ml KS PRN PRN Constipation 05/11/22 06/17/22 Unknown History gram/118 mL enema (Fleet Enema) oxycodone-acetaminophen 5 mg-325 1 tab PO Q4H PRN pain #40 tabs 05/19/22 06/17/22 Unknown Rx mg tablet (Percocet) Allergies Allergy/AdvReac Type Severity Reaction Status Date / Time doxycycline Allergy ADR-Vomitin Verified 06/17/22 12:43 g hydroxyzine Allergy Unknown Verified 06/15/22 14:23 chlorpromazine AdvReac mood Verified 06/15/22 14:23 [From Thorazine] [facility] Anesthesia Medical History Hypertension Seizure disorder Stroke Surgical History History of laryngoscopy (05/25/22) Flexible laryngoscopy History of left hip replacement (08/26/13) Bipolar endoprosthesis for left hip femoral neck fracture History of lymph node biopsy (05/19/22) Excision of right neck mass S/P ORIF (open reduction internal fixation) fracture (08/28/17) ORIF for right hip intertrochanteric fracture Family History Other CAD (coronary artery disease) Cancer Diabetes Hypertension Stroke Social History Smoking and tobacco status: former smoker Quit status (tobacco): has quit using tobacco Year quit tobacco: 2012 Alcohol intake: never History of recent travel: No Data Anesthesia Cardiac Studies: No Data to Display
--- NOTE | 2022-06-20 13:57 | P.ANESASSM_ITS ---
Pre-Anesthetic Assessment Height/Weight: Height 1.73 m Weight 68.719 kg Temp Pulse Resp BP Pulse Ox O2 Del Method 97.9 F 68 18 118/83 94 06/20/22 13:52 06/20/22 13:52 06/20/22 13:52 06/20/22 13:52 06/20/22 13:52 06/20/22 13:52 Preop Diagnosis: Malignant neoplasm of supraglottis Operation Date: 06/20/22 14:45 Proposed Procedures p placement of port a cath & 15607 peg tube placement 74651,C32.1(Not Applicable) - Kane Mcnamara DO s PEG Tube Insertion(Not Applicable) - Kane Mcnamara DO Was Beta Winston taken within 24 hours: N/A Was Clonidine taken within 24 hours: N/A Social No alcohol and No tobacco Exam alert, oriented x 3 and regular rate & rhythm Course breath sounds b/l Airway Submandibular: within normal limits Cervical ROM: Other (limited extension ) Mallampati: Class II Dentition: false Comments: Comments: Supraglottic neoplasm Pulmonary None reported CV/HEM Hypertension None reported Hepatic None reported GI Difficulty swallowing secretions Metabolic None reported Musc/skel Osteoarthritis/DJD Kyphosis Neuropsych Seizure CT 03/23/22 CT/CT neck w con* [id number] IMPRESSION: ? 1.? Peripherally enhancing low-attenuation cystic or necrotic RIGHT neck mass posterior to the RIGHT submandibular gland and anterior to the sternocleidomastoid measuring 2.8 x 2.1 x 2.1 cm highly suspicious for malignancy or necrotic lymph node measuring patient this age. Less likely an infected 2nd branchial cleft cyst can give a similar appearance but neoplasm should be excluded primarily in a patient this age 2.? 2 additional smaller surrounding enhancing lesions measuring 9-10 mm respectively at the apex of the lesion support suspicion for neoplasm. Recommend ENT consultation. 3.? No other visualized neck mass or lymphadenopathy considering limitations. 4.? Limited evaluation of the oropharynx and supraglottic larynx due to beam hardening artifact and positioning due to marked kyphosis. 5.? Bilateral thyroid nodules LEFT greater than RIGHT. This can be followed with ultrasound on an elective basis. 6.? Moderate bilateral carotid bulb calcification RIGHT greater than LEFT. 7.? Inspissated secretions in the RIGHT maxillary sinus. ? Anesthetic Plan ASA status: 3 Anesthesia: Anesthesia Evaluation and General Other: We discussed risk and benefits of general anesthesia including PONV, sore throat (sometimes severe), corneal abrasion, positioning and peripheral nerve injuries, life threatening allergic reaction, post operative ICU admission requiring prolonged intubation, aspiration, stroke, heart attack, , and rare incidences of recall. Patient consents to proceed with general anesthesia. Plan GETA Risk of > 500 ml blood loss (7ml/kg in children): No Medications/Allergies Home Medications Medication Instructions Recorded Confirmed Last Taken Type phenobarbital 64.8 mg tablet 64.8 mg PO BID #60 tabs 10/14/20 06/17/22 05/18/22 Rx carbamazepine 200 mg tablet 200 mg PO TID #90 tabs 10/21/20 06/17/22 05/18/22 Rx (Tegretol) gabapentin 600 mg tablet 600 mg PO BID #60 tabs 10/21/20 06/17/22 05/18/22 Rx (Neurontin) topiramate 100 mg tablet (Topamax) 100 mg PO BID #60 tabs 10/21/20 06/17/22 05/18/22 Rx citalopram 20 mg tablet (Celexa) 40 mg PO DAILY 04/11/22 06/17/22 05/18/22 History fluticasone propionate 50 1 spray intranasal BEDTIME 04/11/22 06/17/22 05/18/22 History mcg/actuation nasal spray,suspension (Flonase Allergy Relief) potassium chloride 20 mEq 20 meq PO DAILY 04/11/22 06/17/22 05/18/22 History tablet,extended release(part/cryst) acetaminophen 325 mg tablet 325 mg PO QID PRN Pain 05/11/22 06/17/22 05/18/22 History (Tylenol) bisacodyl 10 mg rectal suppository 10 mg SC DAILY PRN Constipation 05/11/22 06/17/22 05/18/22 History guaifenesin 100 mg/5 mL oral liquid 100 mg PO Q4H PRN cough 05/11/22 06/17/22 05/18/22 History magnesium hydroxide 400 mg/5 mL 30 ml PO DAILY PRN Constipation 05/11/22 06/17/22 05/18/22 History oral suspension (Milk of Magnesia) sodium phosphates 19 gram-7 118 ml SC PRN PRN Constipation 05/11/22 06/17/22 Unknown History gram/118 mL enema (Fleet Enema) oxycodone-acetaminophen 5 mg-325 1 tab PO Q4H PRN pain #40 tabs 05/19/22 06/17/22 Unknown Rx mg tablet (Percocet) Allergies Allergy/AdvReac Type Severity Reaction Status Date / Time doxycycline Allergy ADR-Vomitin Verified 06/17/22 12:43 g hydroxyzine Allergy Unknown Verified 06/15/22 14:23 chlorpromazine AdvReac mood Verified 06/15/22 14:23 [From Thorazine] [facility] Anesthesia Medical History Hypertension Seizure disorder Stroke Surgical History History of laryngoscopy (05/25/22) Flexible laryngoscopy History of left hip replacement (08/26/13) Bipolar endoprosthesis for left hip femoral neck fracture History of lymph node biopsy (05/19/22) Excision of right neck mass S/P ORIF (open reduction internal fixation) fracture (08/28/17) ORIF for right hip intertrochanteric fracture Family History Other CAD (coronary artery disease) Cancer Diabetes Hypertension Stroke Social History Smoking and tobacco status: former smoker Quit status (tobacco): has quit using tobacco Year quit tobacco: 2012 Alcohol intake: never History of recent travel: No Data Anesthesia Cardiac Studies: No Data to Display
--- NOTE | 2022-06-20 14:00 | ECG_ITS ---
[facility] Test Date: 2022-06-20 Pat Name: Tera Zhu Department: Room: Gender: Male Order Fulfillment Specialist: : 1955 Requested By: Brian Hurst Order Number: [id number] Mu MD: Orlando Sims M.D. Measurements Intervals [place] Rate: 82 P: 50 [place]: 171 QRS: 28 QRSD: 82 T: 16 QT: 348 QTc: 408 Interpretive Statements SINUS RHYTHM POSSIBLE INFERIOR MYOCARDIAL INFARCTION , PROBABLY OLD [30 ms Q WAVE IN II/aVF] Compared to ECG 08/28/2017 05:39:10 Myocardial infarct finding now present Electronically Signed On 06-21-2022 7:08:44 CDT by Orlando iSms M.D. [id number]
[2022-06-20] MEDS: sodium chloride 0.9% 1,000 ML 30 ML IV (14:41)
--- NOTE | 2022-06-20 14:44 | W.PM.OPSUD ---
Surgery/Procedure H&P Update DATE OF PROCEDURE: June 20, 2022 DATE H&P PERFORMED: 06/15/22 CHANGES TO PREVIOUS DOCUMENTATION: none PREOP DIAGNOSIS: Malignant neoplasm of supraglottis PLANNED PROCEDURE: Operation Date: 06/20/22 14:45 Proposed Procedures p placement of port a cath & 65234 peg tube placement 43799,C32.1(Not Applicable) - Kane Mcnamara DO s PEG Tube Insertion(Not Applicable) - Kane Mcnamara DO
[2022-06-20] MEDS: ceFAZolin 2,000 MG in sodium chloride 0.9% (plus) 50 ML 100 MG IV (16:30)
[2022-06-20] MEDS: heparin, porcine 1,000 unit/mL INJ 10 mL 10000 UNIT IRRIGATION (17:14)
--- NOTE | 2022-06-20 17:41 | PM.OP ---
Operative Report Date of procedure: June 20, 2022 Pre-op diagnosis: Preop Diagnosis Malignant neoplasm of supraglottis Post-op diagnosis: same Procedure done: Mediport insertion Implants: Mediport Surgeon: Dr. Kane Mcnamara pshayna Estimated blood loss: 5 Complications: None apparent Brief History: Patient with supraglottic cancer that needs Mediport for chemotherapy. Risks and benefits were explained and documented Procedure: The patient was taken to the operating room and placed supine on the operating room table. All bony prominences were padded. She was given IV sedation and monitored throughout the case by the anesthesia personnel. SCDs were placed and turned on. The arms were tucked to the side. Patient received Ancef 2 g preoperatively IV. The bilateral chest wall was prepped and draped in usual sterile fashion using chlorhexidine base prep. Sterile drapes were applied. We did procedure pause prior to beginning. An 18 gauge needle was placed in the right subclavian vein. Dark, nonpulsatile blood was aspirated. A guidewire was placed through the needle centrally toward the atrial/vena caval junction. Fluoroscopy visualized good placement. The needle was removed and the guidewire was clipped to the drape with a hemostat. Further local anesthetic was infiltrated in the soft tissues of the right chest wall and a #15 blade was used to make a horizontal skin incision. A subcutaneous Mediport pocket was created using Bovie cautery, dissecting down through the skin and subcutaneous tissues. Meticulous hemostasis was achieved. The Mediport was sutured in position using 3-0 vicryl suture x2 stitches. A #15 blade was used to make a small skin gianna around the guidewire insertion area. The Mediport tubing was tunneled through the subcutaneous tissues up to the needle insertion location. A dilator with a peel-away sheath was placed over the guidewire and placed centrally. After measuring with fluoroscopy, the Mediport tubing was cut to length so that the tip would end at the atrial/vena caval junction. The inner cannula and the guidewire were removed, leaving the dilator sheath in place. The Mediport was flushed. The tip of the catheter was inserted through the peel-away sheath and the peel-away sheath removed in the standard fashion. The Mediport was accessed with a straight Costello needle and dark, nonpulsatile blood was aspirated and flushed using heparinized saline to hep-lock the Mediport. Final fluoroscopy visualization showed no kink in the catheter and the tip of the Mediport tubing near the atrial/vena caval junction. Both skin incisions were thoroughly irrigated and suctioned dry. Meticulous hemostasis noted. The Mediport incision was closed using interrupted 3-0 Vicryl suture for the deep dermal layer and 4-0 Vicryl run to close the skin edge. The right/left subclavian insertion site incision was closed with a single subcuticular stitch. Skin glue was applied as a topical dressing. This was allowed to dry. Patient was awakened from anesthesia and transferred via her cart to the recovery room in stable condition. All needle, sponge, and instrument counts were correct per the operating personnel x2 counts.
--- NOTE | 2022-06-20 17:43 | XRR_ITS ---
PROCEDURE INFORMATION: Exam: XR Chest Exam date and time: 06/20/2022 5:59 PM Age: 66 years old Clinical indication: Other vascular access device placement or adjustment; Port; Additional info: Post port a cath placement TECHNIQUE: Imaging protocol: Radiologic exam of the chest. Views: 1 view. COMPARISON: CR Chest 1 [place] [id number] 08/27/2017 6:07 PM FINDINGS: Tubes, catheters and devices: Right-sided central venous chest port noted with the distal tip at the cavoatrial junction. Lungs: Mildly prominent interstitial markings. Questionable retrocardiac left basilar consolidation. Pleural spaces: Blunting of the right costophrenic angle with obscuration of the right hemidiaphragm. Heart/Mediastinum: The cardiomediastinal silhouette is within normal limits. Bones/joints: Unremarkable. Soft tissues: Minimal subcutaneous emphysema noted overlying the right upper chest. XR/XR chest 1V portable [id number] IMPRESSION: 1. Right-sided central venous chest port noted with the distal tip at the cavoatrial junction. 2. Small right-sided pleural effusion. 3. Possible left lung base atelectasis versus pneumonia.
--- NOTE | 2022-06-20 18:40 | ANE.PACU2 ---
Inpatient post-anesthesia follow up: Airway intact: Yes Vital signs: Temperature 98.2 F Pulse Rate 98 Respiratory Rate 18 Blood Pressure 141/79 Pulse Oximetry 95 Oxygen Delivery Me thod Nasal Cannula Oxygen Flow Rate 2 Fraction of Inspir ed Oxygen Hydration adequate: Yes Nausea and vomiting: No Pain level: 1 Mental status: Baseline
== END 2022-06-20 18:45 | disposition home or self-care (01) ==
PROVIDERS: PCP Internal Medicine; Visit Provider Surgery
PROC: (CPT 36561; principal; 2022-06-20 14:45)
PROC: 0DH63UZ Insertion of Feeding Device into Stomach, Percutaneous Approach (ICD-10-PCS; CPT 43246; 2022-06-20 14:45)
DX: C32.1 Malignant neoplasm of supraglottis (principal); I10 Essential (primary) hypertension; Z86.73 Personal history of transient ischemic attack (TIA), and cerebral infarction without residual deficits; Z87.891 Personal history of nicotine dependence
CPT/HCPCS: 36561; 43246; 71045; 77001; 93005; C1788; J1644; J2370; J2405; J2704; J3010; J3490; J7030

== ENCOUNTER 2022-07-07 09:06 | Oncology outpatient (recurring) (ONCR) | payer MEDICARE, MEDICAID, SELFPAY ==
--- NOTE | 2022-07-07 10:00 | US_ITS ---
WS: [id number] Thyroid ultrasound, 07/07/2022 Clinical Data: thyroid nodule Comparison: CT neck, 03/23/2022. Findings: The right lobe of thyroid measures 3.8 cm x 1.5 cm x 2.1 cm. The largest nodule in the right lobe is 0.61 x 0.67 x 0.95 cm. The left lobe measures 3.9 cm x 2.7 cm x 3.0 cm. There is a solid nodule with mixed echogenicity victorino uring 1.84 x 1.93 x 2.02 cm. The isthmus measured 0.4 mm. Superior to the thyroid just inferior to the submandibular glands there are several nodules are noted on the CT neck which probably represent metastatic lesions. The largest nodule in the right neck was 1.12 x 1.43 x 1.67 cm. On the left the largest nodule was 0.87 x 0.79 x 1.44 cm. Inferior to the right submandibular gland there was an open draining wound which showed a probable fl uid collection adjacent to a complex nodule. US/US thyroid [id number] Impression: 1. Multinodular goiter. 2. Bilateral cervical nodules which are probably metastatic nodules. 3. Open draining wound on the right side of the neck which represents fluid and an adjacent nodule.
== END 2022-07-20 23:59 | disposition home or self-care (01) ==
LOC: RAD 07-12 11:14 → ONCMED 07-21 07:19
PROVIDERS: Absent Provider Internal Medicine Medical Oncology; PCP Internal Medicine; Visit Provider Specialist
DX: E04.1 Nontoxic single thyroid nodule (principal); C32.1 Malignant neoplasm of supraglottis
CPT/HCPCS: 76536; 99213

== ENCOUNTER → 2022-07-07 10:23 | Outpatient (BNVA) | payer MEDICARE, MEDICAID, SELFPAY | PROVIDERS: PCP Internal Medicine; Visit Provider Surgery | DX: C32.1 Malignant neoplasm of supraglottis (principal) | CPT/HCPCS: 99213 ==

== ENCOUNTER 2022-07-11 00:26 | Inpatient (IN) | payer MEDICAID, SELFPAY ==
[2022-07-11] VITALS (54 sets, daily range): BP systolic 81–114; BP diastolic 61–94; PULSE 87–113; RESP 9–32; TEMP 36.3–37.6; O2SAT 87–100; BMI 21.9; BMI 22.1
--- NOTE | 2022-07-11 00:41 | XRR_ITS ---
PROCEDURE INFORMATION: Exam: XR Chest Exam date and time: 07/11/2022 1:20 AM Age: 66 years old Clinical indication: Shortness of breath; Additional info: SOB TECHNIQUE: Imaging protocol: Radiologic exam of the chest. Views: 1 view. COMPARISON: CR XR chest 1V portable [id number] 06/20/2022 5:59 PM FINDINGS: Tubes, catheters and devices: Right chest port extends into the distal SVC. Lungs: Reticular changes of pulmonary interstitium. Patchy asymmetric left upper lobe airspace opacification. Pleural spaces: Unremarkable. No pleural effusion. No pneumothorax. Heart/Mediastinum: Unremarkable. No cardiomegaly. Diaphragm: Elevated diaphragm. Bones/joints: Unremarkable. XR/XR chest 1V portable [id number] IMPRESSION: Patchy asymmetric left upper lobe airspace opacity new from prior suspicious for pneumonia.
--- NOTE | 2022-07-11 00:42 | ECG_ITS ---
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 Measurements Intervals [place] Rate: 112 P: -10 AK: 141 QRS: 56 QRSD: 81 T: 31 QT: 328 QTc: 450 Interpretive Statements SINUS TACHYCARDIA Compared to ECG 06/20/2022 14:12:47 Sinus rhythm no longer present Myocardial infarct finding no longer present Electronically Signed On 07-11-2022 7:56:46 CDT by Giovanna Turcios M.D. [id number]
[2022-07-11 00:50] LABS: Hematocrit 50.4 % (42.0-52.0); Hemoglobin 15.7 g/dL (11.7-16.6); Mean Corpuscular HGB Conc 31.2 g/dL (30.0-36.0); Mean Corpuscular Hemoglobin 31.4 pg (28.0-34.0); Mean Corpuscular Volume 100.8 fl (80-94); Mean Platelet Volume 9.6 fL (7.4-10.4); Platelet Count 303 10^3/cmm (130-400)
[2022-07-11 00:54] LABS: ABG PCO2 32.3 mmHg (35-45); ABG PH Result 7.39 (7.35-7.45); Base Excess ABG -4.3 mmol/L (-2.0-2.0); Blood Gas Allen Test Pos; Blood Gas Operator Identificat WALCI; Blood Gas Sample Site Radial, left; Blood Gas Sample Type Arterial; Carboxyhemoglobin 1.7 %THgb (0.4-20.1); HCO3 ABG 19.6 mmol/L (22-26); HGB O2 Sat 87.8 % (95-100); Methemoglobin 0.6 % (0.4-1.5); Oxygen Device NRB; PO2 ABG 55.4 mmHg (80.0-100.0); Total Hemoglobin 15.3 g/dL (14-18)
[2022-07-11 01:10] LABS: Troponin(5th) Baseline 24 ng/L (0-15)
[2022-07-11] MEDS: sodium chloride 0.9% 1,000 ML 999 ML IV ×2 (01:10→03:24)
[2022-07-11 01:12] LABS: Absolute Segmented Neutrophil 5.6 10/cmm (1.6-7.1); Alanine Aminotransferase 16 U/L (0-41); Albumin Level 3.6 g/dL (3.5-5.2); Alkaline Phosphatase 104 U/L (40-130); Anion Gap 22.6 (5-19); Aspartate Amino Transferase 19 U/L (0-40); Band Neutrophils Absolute 4.3 10^3/cmm (0.0-1.2); Blood Urea Nitrogen 33 mg/dL (8-23); Carbon Dioxide 21 mmol/L (22-29); Chloride 101 mmol/L (98-107); Eosinophils 0 %; Globulin 4.3 g/dL (1.3-4.6); Glomerular Filtration Rate 43.2 mL/min (90-130); Glucose 183 mg/dL (65-115); Lymphocytes 10 %; Lymphocytes Absolute 1.3 10^3/cmm (1.2-3.4); Monocytes Absolute 0.7 10^3/cmm (0.1-0.6); NT Pro B Type Natriuretic Pept 2645 pg/mL (0-125); Osmolality Calculated 302 mOsm/kg (285-295); Platelet Estimate Normal (Normal); Potassium 4.6 mmol/L (3.5-5.1); Segmented Neutrophils 47 %; Sodium 140 mmol/L (136-145); Total Cells Counted 100 (0-100); Total Protein 7.9 g/dL (6.6-8.7)
[2022-07-11 01:13] LABS: Dohle Bodies Trace; Toxic Vacuolation TRACE
--- NOTE | 2022-07-11 01:21 | ED_ITS ---
HPI - SOB/Dyspnea General: Chief Complaint: Shortness of Breath/Dyspnea Stated Complaint: Aspiration Time Seen by Provider: 07/11/22 00:37 Source: patient History of Present Illness: HPI Narrative: 66-year-old jail patient. He presents in acute respiratory failure. [facility] was [facility] by the jail, after the patient was found exceptionally short of breath. Initial saturations were in the low 80s. He comes to us on 15 L of oxygen satting around 90%. Evidently, a PEG tube was placed recently. It was flushed earlier in the evening, and the patient threw up. No fever. the patient himself is awake and talking. He also has a fresh Mediport site to his anterior chest wall. 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 MD elicited complaint: shortness of breath Pertinent past history: other Onset (ago): hour(s) Context: choking/aspiration Timing: progressively worsening Severity: severe Relieving factors: oxygen and upright position Associated symptoms: Reports cough and vomiting; Deny abdominal pain, chest pain, fever(s) or nausea Treatment prior to arrival: oxygen Review of Systems General: Reports: ROS unobtainable due to medical condition Const: Denies: fever(s) ENMT: Reports: throat pain Card: Denies: chest pain GI: Reports: vomiting; Denies: abdominal pain or nausea PFSH ED PFSH: Medical History Hypertension Seizure disorder Stroke Surgical History History of laryngoscopy (05/25/22) Flexible laryngoscopy History of left hip replacement (08/26/13) Bipolar endoprosthesis for left hip femoral neck fracture History of lymph node biopsy (05/19/22) Excision of right neck mass S/P ORIF (open reduction internal fixation) fracture (08/28/17) ORIF for right hip intertrochanteric fracture Family History Other CAD (coronary artery disease) Cancer Diabetes Hypertension Stroke Social History Smoking and tobacco status: former smoker Quit status (tobacco): has quit using tobacco Year quit tobacco: 2013 Alcohol intake: never History of recent travel: No Physical Exam Const: GENERAL APPEARANCE: cooperative, ill appearing and frail appearing HENMT: COMMON NORMALS: normocephalic and Normal external nose present HEAD & SCALP: normocephalic FACE & SINUS: face not symmetric (left sided droop) NOSE: Normal external nose present Eye: COMMON NORMALS: Equal, round and reactive pupils present and EOMs intact bilaterally PUPIL: Yes Equal, round and reactive pupils present Chest: CHEST: Yes Symmetrical chest wall rise OTHER: Significant kyphosis Resp: EFFORT & INSPECTION: Yes respiratory distress, Yes labored, Yes retractions and Yes uses accessory muscles AUSCULTATION: rales and rhonchi Cardio: COMMON NORMALS: regular rhythm RATE: tachycardic RHYTHM: regular rhythm GI: COMMON NORMALS: Normal to inspection, nondistended, normoactive bowel sounds present and Soft to palpation PALPATION: Yes Soft to palpation Extremity: GENERAL: Yes edema (1+) Course Vital Signs: Vital signs: Vital Signs Temperature 98.7 F 07/11/22 00:28 Pulse Rate 103 H 07/11/22 02:14 Respiratory Rate 30 H 07/11/22 02:14 Blood Pressure 111/85 07/11/22 02:14 Pulse Oximetry 94 07/11/22 02:14 Oxygen Delivery Me thod 07/11/22 02:14 Oxygen Flow Rate 15 07/11/22 00:28 Fraction of Inspir ed Oxygen 50 07/11/22 00:43 MDM - SOB/Dyspnea Medical Decision Making 66-year-old male in respiratory distress. He is placed on BiPAP immediately, with good oxygenation. Blood gas prior to placement on BiPAP shows a PO2 of 55. His creatinine is 1.6. White blood cell count is 12. Chest x-ray shows patchy left upper lobe opacity consistent with pneumonia, which could be aspiration given his history. He started on Zosyn and bank following blood cultures and lactic here in the ER. His lactic acid level is 5. He is receiving 2 L bolus for potential sepsis as well. The patient remains decently spry, awake and talking. Lab Data : 07/11/22 00:30 07/11/22 00:30 Labs/Radiology: Radiology Impressions Chest X-Ray 07/11/22 00:41 IMPRESSION: Patchy asymmetric left upper lobe airspace opacity new from prior suspicious for pneumonia. Laboratory Results WBC 12.0 10^3/uL (4.0-10.0) H 07/11/22 00:30 RBC 5.00 10^6/uL (4.1-5.3) 07/11/22 00:30 Hgb 15.7 g/dL (11.7-16.6) 07/11/22 00:30 Hct 50.4 % (42.0-52.0) 07/11/22 00:30 MCV 100.8 fl (80-94) H 07/11/22 00:30 MCH 31.4 pg (28.0-34.0) 07/11/22 00:30 MCHC 31.2 g/dL (30.0-36.0) 07/11/22 00:30 RDW 13.0 % (12.1-15.1) 07/11/22 00:30 Plt Count 303 10^3/cmm (130-400) 07/11/22 00:30 MPV 9.6 fL (7.4-10.4) 07/11/22 00:30 Lymph % (Auto) Not Reportable 07/11/22 00:30 [place] % (Auto) Not Reportable 07/11/22 00:30 Lymph # (Auto) Not Reportable 07/11/22 00:30 [place] # (Auto) Not Reportable 07/11/22 00:30 Total Counted 100 (0-100) 07/11/22 00:30 Atypical Lymphs % 1.0 % (0-5) 07/11/22 00:30 Absolute Neutrophils 10.0 10^3/cmm (1.4-6.5) H 07/11/22 00:30 Segmented Neutrophils 47 % 07/11/22 00:30 Abs Segm Neuts (Man) 5.6 10/cmm (1.6-7.1) 07/11/22 00:30 Band Neutrophils 36.0 % 07/11/22 00:30 Abs Band Neuts (Man) 4.3 10^3/cmm (0.0-1.2) H 07/11/22 00:30 Absolute Lymphocytes 1.3 10^3/cmm (1.2-3.4) 07/11/22 00:30 Lymphocytes (Manual) 10 % 07/11/22 00:30 Monocytes (Manual) 6.0 % 07/11/22 00:30 Absolute Monocytes 0.7 10^3/cmm (0.1-0.6) H 07/11/22 00:30 Eosinophils (Manual) 0 % 07/11/22 00:30 Absolute Eosinophils 0.0 10^3/cmm (0.0-0.7) 07/11/22 00:30 Basophils (Manual) 0.0 % 07/11/22 00:30 Absolute Basophils 0.0 10^3/cmm (0.0-0.2) 07/11/22 00:30 Toxic Vacuolation Trace 07/11/22 00:30 Dohle Bodies Trace 07/11/22 00:30 Platelet Estimate Normal (Normal) 07/11/22 00:30 Specimen Type Arterial 07/11/22 00:43 Sample Site Radial, left 08 00:43 ABG pH 7.39 (7.35-7.45) 07/11/22 00:43 ABG pCO2 32.3 mmHg (35-45) L 07/11/22 00:43 ABG pO2 55.4 mmHg (80.0-100.0) L 07/11/22 00:43 ABG HCO3 19.6 mmol/L (22-26) L 07/11/22 00:43 ABG Base Excess -4.3 mmol/L (-2.0-2.0) L 07/11/22 00:43 Trell Test Pos 07/11/22 00:43 Hematocrit 47.0 % (42-52) 07/11/22 00:43 Hgb O2 Saturation 87.8 % (95-100) L 07/11/22 00:43 Carboxyhemoglobin 1.7 %THgb (0.4-20.1) 07/11/22 00:43 Methemoglobin 0.6 % (0.4-1.5) 07/11/22 00:43 Total Hemoglobin 15.3 g/dL (14-18) 07/11/22 00:43 O2 Delivery Device Nrb 07/11/22 00:43 O2 Liters/Min 15.0 % 07/11/22 00:43 Plastic Cnc Machine Operator ID James 07/11/22 00:43 Sodium 140 mmol/L (136-145) 07/11/22 00:30 Potassium 4.6 mmol/L (3.5-5.1) 07/11/22 00:30 Chloride 101 mmol/L (98-107) 07/11/22 00:30 Carbon Dioxide 21 mmol/L (22-29) L 07/11/22 00:30 Anion Gap 22.6 (5-19) H 07/11/22 00:30 BUN 33 mg/dL (8-23) H 07/11/22 00:30 Creatinine 1.6 mg/dL (0.7-1.2) H 07/11/22 00:30 GFR Calculation 43.2 mL/min (90-130) L 07/11/22:30 Glucose 183 mg/dL (65-115) H 07/11/22 00:30 Calculated Osmolality 302 mOsm/kg (285-295) H 07/11/22 00:30 Lactic Acid 5.0 mmol/L (0.5-2.2) H* 07/11/22 00:30 Calcium 10.0 mg/dL (8.5-10.5) 07/11/22 00:30 Total Bilirubin 1.0 mg/dL (0.15-1.2) 07/11/22 00:30 AST 19 U/L (0-40) 07/11/22 00:30 ALT 16 U/L (0-41) 07/11/22 00:30 Alkaline Phosphatase 104 U/L (40-130) 07/11/22 00:30 Troponin T Baseline 24 ng/L (0-15) H 07/11/22 00:30 NT-Pro-B Natriuret Pep 2645 pg/mL (0-125) H 07/11/22 00:30 Total Protein 7.9 g/dL (6.6-8.7) 07/11/22 00:30 Albumin 3.6 g/dL (3.5-5.2) 07/11/22 00:30 Globulin 4.3 g/dL (1.3-4.6) 07/11/22 00:30 Critical Care Time 2 Critical Care Time: Critical Care Time: Yes Total Critical Care Time: 35 Attestation: This case had a high probability of a clinically significant, sudden, or life threatening deterioration of this patient's condition which required my full and direct attention, intervention and personal management. Time is independent of any procedures performed. Discharge Plan Discharge Patient Disposition: Admitted As Inpatient Clinical Impression: Acute respiratory failure with hypoxia, Sepsis Condition: Serious Coding Level of Care Code ED Deputy Commissioner for Renee Simpson Exam Comprehensive
[2022-07-11] MEDS: piperacillin-tazobactam 4.5 GM in sodium chloride 0.9% (plus) 50 ML IV (02:10)
[2022-07-11] MEDS: vancomycin 1,000 MG in sodium chloride 0.9% 250 ML 250 MG IV (02:12)
[2022-07-11 02:37] LABS: Reflex Lactate Order REFLEX LACTIC ORDERD
--- NOTE | 2022-07-11 02:40 | CTR_ITS ---
PROCEDURE INFORMATION: Exam: CT Chest Without Contrast; Diagnostic Exam date and time: 07/11/2022 2:55 AM Age: 66 years old Clinical indication: Other: Pna; Shortness of breath; Additional info: Pna, ileus? TECHNIQUE: Imaging protocol: Diagnostic computed tomography of the chest without contrast. Radiation optimization: All CT scans at this facility use at least one of these dose optimization techniques: automated exposure control; mA and/or kV adjustment per patient size (includes targeted exams where dose is matched to clinical indication); or iterative reconstruction. COMPARISON: CR (CHEST, ) 07/11/2022 1:20 AM RADIATION DOSE METRICS: Total DLP (mGy-cm): 938.45 FINDINGS: Thyroid: Bilateral thyroid heterogeneous attenuation is once again seen with subcentimeter 0.9 cm right and 1.7 cm left thyroid nodules. Trachea: The airway appears unremarkable. Lungs: There is volume loss in the left hemithorax with mildly elevated left hemidiaphragm. Moderate left upper lobe patchy regions of ground-glass opacity are seen with coalescence in the superior lingula. Some nodular ground-glass opacities also seen with central lucencies (possible early cavitation). Severe lobar consolidation is seen in the left lower lobe. These findings may represent multifocal pneumonia. Metastatic disease or post treatment related pneumonitis cannot be excluded. Recommend correlation with clinical findings and follow-up. There is mild hyperinflation of the right lung. There are no right lung regions of ground-glass opacity, consolidation or interstitial lung disease. Pleural spaces: No pneumothorax. No pleural effusion. Heart: The heart size is normal. No pericardial effusion. Moderate left anterior descending coronary arterial atherosclerotic vascular calcifications. Lymph nodes: Subcentimeter nonspecific prevascular, right paratracheal and pretracheal lymph nodes are seen. There is mild shift of the mediastinum towards the left. Vasculature: Unremarkable. No aortic aneurysm. Bones/joints: There is marked kyphotic curvature of the thoracic spine. There is generalized osteopenia. Wedge compression fractures of the T12 and L1 vertebral bodies are seen with 60% vertebral body height loss. Some other regions of mild endplate invagination are seen. Small degenerative osteophytes and moderate degenerative disc disease changes are seen in the midthoracic region. Mild deformity of the of the mid sternal region is seen, which may be related to motion artifact rather than fracture. Soft tissues: Unremarkable. PROCEDURE INFORMATION: Exam: CT Abdomen And Pelvis Without Contrast Exam date and time: 07/11/2022 2:55 AM Age: 66 years old Clinical indication: Other: Pna; Shortness of breath; Additional info: Pna, ileus? TECHNIQUE: Imaging protocol: Computed tomography of the abdomen and pelvis without contrast. Radiation optimization: All CT scans at this facility use at least one of these dose optimization techniques: automated exposure control; mA and/or kV adjustment per patient size (includes targeted exams where dose is matched to clinical indication); or iterative reconstruction. COMPARISON: CR Hip 2-3v RIGHT wwo Pelvis* 12/15/2017 1:48 PM RADIATION DOSE METRICS: Total DLP (mGy-cm): 938.45 FINDINGS: Liver: The non-contrast enhanced liver shows normal attenuation. Nonspecific tiny region of branching air is seen in the left hepatic lobe (series 5, images 73-79). This could represent portal venous gas or pneumobilia. Assessment is limited on noncontrast CT. Contrast enhanced CT may be performed for further assessment. Gallbladder and bile ducts: Mildly distended gallbladder is seen with multiple gallstones, the largest measuring 5 mm. No biliary ductal dilatation. Pancreas: The non-contrast enhanced pancreas appears grossly unremarkable. No ductal dilation. Spleen: The non-contrast enhanced spleen appears unremarkable. No splenomegaly. Adrenal glands: Unremarkable non-contrast CT appearance of the adrenals. No definte masses. Kidneys and ureters: Left kidney upper pole, mid zone and lower pole multiple calculi are seen, the largest in the lower pole region measuring 0.6 x 1 cm. There is moderate to severe left hydronephrosis and ureterectasis to the level of the bladder. Left distal ureteral 0.6 x 0.4 x 1.5 cm calculus is seen (series 9, image 101, series 10, image 42 and series 11, image 38). Right kidney upper pole 1 x 1 mm calculus is seen. No right hydronephrosis, ureterectasis or ureteral calculi. Stomach and bowel: The noncontrast opacified stomach appears unremarkable. Percutaneous endoscopic gastrostomy tube is seen with retention bulb in the lower gastric body region. The noncontrast opacified small bowel loops in the abdomen and pelvis appear unremarkable. There is no pneumatosis or abnormal dilatation seen. The noncontrast opacified loops of colon in the abdomen and pelvis show redundant sigmoid colon. Some gas and fecal material is seen throughout the colon, suggestive of mild constipation.The lack of orally administered contrast material limits assessment. Appendix: No evidence of appendicitis. Intraperitoneal space: No abdominal ascites. No free air. Vasculature: Moderate atherosclerotic vascular calcifications of the abdominal aorta are seen. No aneurysm. Lymph nodes: No enlarged lymph nodes. Urinary bladder: Moderately distended bladder is seen. Posterior bladder 3 x 1 mm, 2 x 1 mm and 4 x 2 mm calculi are seen. Reproductive: Unremarkable as visualized. Bones/joints: There is generalized osteopenia. Wedge compression fractures of the T12 and L1 vertebral bodies are seen with 60% vertebral body height loss. Superior inferior endplate invagination is are also seen at the L2 and L4 levels with 20% vertebral body height loss, age indeterminate. MRI or bone scan may be performed for complete assessment. The patient is status post left bipolar hip arthroplasty. The patient is status post dynamic hip screw fixation of right proximal femoral fracture. Mild deformity of the left superior inferior pubic rami regions is seen, related to old healed fractures. Mild symphysis pubis and bilateral sacroiliac joint degenerative changes are seen. Soft tissues: Unremarkable. CT/[place] [id number] IMPRESSION: 1. Volume loss in the left hemithorax with mildly elevated left hemidiaphragm. Moderate left upper lobe patchy regions of ground-glass opacity with coalescence in the superior lingula. Some nodular ground-glass opacities also seen with central lucencies (possible early cavitation). Severe lobar consolidation seen in the left lower lobe. These findings may represent multifocal pneumonia. Metastatic disease or post treatment related pneumonitis cannot be excluded. Recommend correlation with clinical findings and follow-up. 2. Unchanged bilateral thyroid nodules, as noted above. 3. Marked kyphotic curvature of the thoracic spine with generalized osteopenia and lower thoracic and upper lumbar compression fractures. IMPRESSION: 1. Nonspecific tiny region of branching air seen in the left hepatic lobe (series 5, images 73-79). This could represent portal venous gas or pneumobilia. Assessment is limited on noncontrast CT. Contrast enhanced CT may be performed for further assessment. 2. Mildly distended gallbladder with gallstones. 3. Mild constipation. No CT evidence of bowel obstruction. No pneumatosis. 4. Multiple left renal calculi, as noted above. Moderate to severe left hydronephrosis and ureterectasis with left distal ureteral calculus and bladder calculi. 5. Degenerative changes of the thoracolumbar spine and pelvis, as noted above. Postsurgical changes of the left hip and right proximal femur regions, as noted above.
--- NOTE | 2022-07-11 02:49 | PM.HP ---
Providers/Chief Complaint Primary Care Provider: Dennis Helton MD Chief Complaint: Aspiration History of Present Illness Tera Zhu is a 66 year old male primary malignant neoplasm of supraglottis, currently patient's not considering surgical or radiation or chemotherapy, protein calorie malnutrition, frailty, status post PEG tube placement, history of seizure disorder, history of stroke, hypertension, who presents to [facility] for shortness of breath and aspiration event. Currently patient is alert to person, not to place, not to time, is difficult to get a history from him, he can answer some basic questions, but is to some degree encephalopathic. I got most of the history from [facility]'s [facility], who tells me that at baseline, patient is a 1 person assist, can feed himself, has had a gradual decline. His PEG tube has been placed for the last 2 weeks and has not had no issues with the PEG tube feedings. However this evening he had an episode of vomiting, after that, nursing staff tell me that he is respirations had increased, he was a bit tachypneic, he had crackles in his lung dyson. His O2 sats were in the low 80s, they thought maybe there could be an issue with his PEG tube, which was flushed, which he might of aspirated. Here in the emergency room patient was found to have acute hypoxic respiratory failure, placed on BiPAP with lactic acidosis, currently satting in the mid 90s, on 50% FiO2, with close status from the penitentiary is full code, no recent antibiotic use Review of Systems General: Reports: ROS unobtainable due to mental status Medications/Allergies Home Medications Medication Instructions Recorded Confirmed Last Taken Type phenobarbital 64.8 mg tablet 64.8 mg PO BID #60 tabs 10/14/20 07/08/22 06/19/22 Rx carbamazepine 200 mg tablet 200 mg PO TID #90 tabs 10/21/20 07/08/22 06/19/22 Rx (Tegretol) gabapentin 600 mg tablet 600 mg PO BID #60 tabs 10/21/20 07/08/22 06/19/22 Rx (Neurontin) topiramate 100 mg tablet (Topamax) 100 mg PO BID #60 tabs 10/21/20 07/08/22 06/19/22 Rx citalopram 20 mg tablet (Celexa) 40 mg PO DAILY 04/11/22 07/08/22 06/19/22 History fluticasone propionate 50 1 spray intranasal BEDTIME 04/11/22 07/08/22 06/19/22 History mcg/actuation nasal spray,suspension (Flonase Allergy Relief) potassium chloride 20 mEq 20 meq PO DAILY 04/11/22 07/08/22 06/19/22 History tablet,extended release(part/cryst) acetaminophen 325 mg tablet 325 mg PO QID PRN Pain 05/11/22 07/08/22 05/18/22 History (Tylenol) bisacodyl 10 mg rectal suppository 10 mg TX DAILY PRN Constipation 05/11/22 07/08/22 05/18/22 History guaifenesin 100 mg/5 mL oral liquid 100 mg PO Q4H PRN cough 05/11/22 07/08/22 06/19/22 History magnesium hydroxide 400 mg/5 mL 30 ml PO DAILY PRN Constipation 05/11/22 07/08/22 05/18/22 History oral suspension (Milk of Magnesia) sodium phosphates 19 gram-7 118 ml TX PRN PRN Constipation 05/11/22 07/08/22 Unknown History gram/118 mL enema (Fleet Enema) oxycodone-acetaminophen 5 mg-325 1 tab PO Q4H PRN pain #40 tabs 05/19/22 07/08/22 Unknown Rx mg tablet (Percocet) carbamazepine 200 mg tablet 200 mg PO TID 07/07/22 07/08/22 Unknown History (Tegretol) Allergies Allergy/AdvReac Type Severity Reaction Status Date / Time doxycycline Allergy ADR-Vomitin Verified 07/08/22 08:41 g hydroxyzine Allergy Unknown Verified 07/08/22 08:41 chlorpromazine AdvReac mood Verified 07/08/22 08:41 [From Thorazine] PFSH Acute PFSH: Medical History Hypertension Seizure disorder Stroke Surgical History History of laryngoscopy (05/25/22) Flexible laryngoscopy History of left hip replacement (08/26/13) Bipolar endoprosthesis for left hip femoral neck fracture History of lymph node biopsy (05/19/22) Excision of right neck mass S/P ORIF (open reduction internal fixation) fracture (08/28/17) ORIF for right hip intertrochanteric fracture Family History Other CAD (coronary artery disease) Cancer Diabetes Hypertension Stroke Social History Smoking and tobacco status: former smoker Quit status (tobacco): has quit using tobacco Year quit tobacco: 2012 Alcohol intake: never History of recent travel: No Vitals/I&O/Wt Last Vital Signs Temp 98.7 F 07/11/22 00:28 Pulse 103 H 07/11/22 02:14 Resp 30 H 07/11/22 02:14 BP 111/85 07/11/22 02:14 Pulse Ox 94 07/11/22 02:14 O2 Del Method 07/11/22 02:14 O2 Flow Rate 15 07/11/22 00:28 FiO2 50 07/11/22 00:43 Weight last 48 hrs Weight 65.317 kg Physical Exam Const: COMMON NORMALS: no acute distress HENMT: COMMON NORMALS: normocephalic HEAD & SCALP: normocephalic Eye: COMMON NORMALS: Equal, round and reactive pupils present Resp: COMMON NORMALS: normal respiratory effort, No retractions and No use of accessory muscles EFFORT & INSPECTION: Yes tachypneic AUSCULTATION: crackles Cardio: COMMON NORMALS: regular rhythm, S1 normal heart sound present and S2 normal heart sound present RATE: tachycardic RHYTHM: regular rhythm HEART SOUNDS: S1 normal heart sound present and S2 normal heart sound present GI: COMMON NORMALS: Soft to palpation, non-tender, No hepatosplenomegaly present, no masses and no bruits AUSCULTATION: Yes Hypoactive bowel sounds present PALPATION: Yes Soft to palpation, No Tenderness to palpation present (GI) and Yes No hepatosplenomegaly present Extremity: COMMON NORMALS: no pedal edema Neuro: OTHER: Alert to person, not to place, not to time, can follow some commands such as squeezing my fingers Data : 07/11/22 00:30 07/11/22 00:30 Micro: Microbiology 07/11/22 02:01 Blood Culture - Preliminary Blood SPECIMEN COLLECTED 07/11/22 01:56 Blood Culture - Preliminary Blood SPECIMEN COLLECTED A&P Assessment and plan (1) Acute respiratory failure with hypoxia: Status: Acute (2) Sepsis: Status: Acute (3) Metastasis to head and neck lymph node: Status: Acute (4) Primary malignant neoplasm of supraglottis: Status: Acute (5) Aspiration pneumonia: Status: Acute (6) Lactic acidosis: Status: Acute (7) Acute encephalopathy: Status: Acute Plan Acute hypoxic respiratory failure -Secondary to aspiration pneumonia -With sepsis -With acute renal failure -With lactic acidosis -With acute encephalopathy -With underlying supraglottic cancer Plan -Admit to ICU -Monitor respiratory status closely -Continue BiPAP -Aspiration precautions -We will keep n.p.o., etiology of patient's vomiting unclear, CT scan of abdomen pelvis ordered, hold tube feeds -Broad-spectrum antibiotic therapy vancomycin and Zosyn -Blood cultures, MRSA PCR, sputum cultures, urine culture -Fluid boluses as needed to maintain MAP in 65 -Levophed as needed to maintain MAP more than 65 -Elevated blood sugars, check A1c -Full code according to penitentiary, once mentation is improved we will discuss CODE STATUS -Lovenox for DVT prophylaxis -Given his aspiration event, will have to discuss with family and patient about possible trach placement -History of seizures, continue home seizure medications Attestations Medical Necessity Statement*: Patient requires hospitalization for acute hypoxic respiratory failure secondary to aspiration pneumonia, lactic acidosis, acute renal failure Coding Level of Care Code Acute Chronic Care Nurse for [facility] Fwd Diagnoses Acute respiratory failure with hypoxia J96.01 Sepsis A41.9 Metastasis to head and neck lymph node C77.0 Primary malignant neoplasm of supraglottis C32.1 Aspiration pneumonia J69.0 Lactic acidosis E87.2 Acute encephalopathy G93.40 Sepsis Event Note Evaluation Current stage of sepsis: sepsis Possible source: pulmonary Focused Exam Vital Signs Temp Pulse Resp BP Pulse Ox O2 Del Method O2 Flow Rate 07/11/22 02:14 103 H 30 H 111/85 94 BiPAP 07/11/22 01:18 109 H 32 H 100/73 96 BiPAP 07/11/22 01:00 111 H 26 H 81/61 96 BiPAP 07/11/22 00:43 113 H 07/11/22 00:44 90 BiPAP 07/11/22 00:28 98.7 F 111 H 30 H 90/71 92 Non-Rebreather 15 FiO2 07/11/22 02:14 07/11/22 01:18 07/11/22 01:00 07/11/22 00:43 50 07/11/22 00:44 07/11/22 00:28 Respiratory exam: Present rales Cardiovascular exam: Present tachycardia Peripheral pulse strength: 2+ Slightly Diminished Peripheral pulse location: Pedal Skin exam: flushed and pale Date exam was performed: 07/11/22 Time exam was performed: 02:55 Problem List (1) Acute encephalopathy: Status: Acute
--- NOTE | 2022-07-11 02:57 | CTR_ITS ---
PROCEDURE INFORMATION: Exam: CT Neck Without Contrast Exam date and time: 07/11/2022 2:59 AM Age: 66 years old Clinical indication: Other: Supraglottic cancer TECHNIQUE: Imaging protocol: Computed tomography of the neck without contrast. Radiation optimization: All CT scans at this facility use at least one of these dose optimization techniques: automated exposure control; mA and/or kV adjustment per patient size (includes targeted exams where dose is matched to clinical indication); or iterative reconstruction. COMPARISON: CT neck w con* [id number] 03/23/2022 11:59 AM RADIATION DOSE METRICS: Total DLP (mGy-cm): 223.48 FINDINGS: Paranasal sinuses: Unchanged severe right maxillary and left sphenoid sinus soft tissue mucosal thickening is seen. Unchanged mild left mid ethmoid sinus 4-5 mm mucous retention cyst is also seen. This is suggestive of sinus disease. There is moderate rightward deviation of the midline nasal septum. Pharynx: Unremarkable on noncontrast imaging. No significant tonsillar or nasopharyngeal adenoidal enlargement. Larynx: Normal epiglottis. Unchanged region of soft tissue thickening is seen in the posterior larynx involving the true and false cord regions this region (series 7, image 57, series 6, image 57 and series 4 images 87 to 93). This region has ill-defined borders. Assessment is limited on noncontrast imaging. The soft tissue thickening extends posteriorly into the prevertebral soft tissues. Recommend contrast enhanced CT or MRI for further evaluation. Prevertebral and retropharyngeal spaces: The remaining prevertebral soft tissues appear unremarkable on noncontrast imaging. The retropharyngeal space is appear unremarkable on noncontrast imaging. Salivary glands: Unchanged asymmetric soft tissue prominence is seen in the region of the right submandibular gland/anterior to the right sternocleidomastoid muscle. This correlated with the cystic or necrotic lesion seen on the prior contrast enhanced CT. Assessment is limited on noncontrast imaging. The left submandibular gland and parotid gland regions appear unremarkable on noncontrast imaging. Thyroid: Unchanged bilateral thyroid nodules with the left thyroid nodule measuring approximately 1.7 x 2.2 cm in the largest right thyroid nodule measuring 0.9 x 0.8 cm. Lymph nodes: No definite enlarged jugular chain lymph nodes seen. Some nonspecific subcentimeter visualized upper mediastinal lymph nodes are seen. Trachea: Visualized trachea is unremarkable. Lungs: Interval development of bronchovascular thickening and moderate irregular patchy ground-glass opacities in the visualized left upper lobe. There is mild shift of the mediastinum towards the left. This may represent post treatment related change, pneumonia or pneumonitis. Recommend correlation with clinical history. Chest CT may be performed for complete assessment. Bones/joints: No acute fracture. Unchanged kyphotic curvature of the cervical spine is seen, which limits assessment on the exam. Vasculature: Unchanged bilateral carotid bulb atherosclerotic vascular calcifications, right more than left. Soft tissues: No significant soft tissue swelling. No obvious fluid collection by limited noncontrast evaluation. No radiopaque foreign body. Notes: The exam is limited due to lack of IV contrast administration. CT/CT neck wo con [id number] IMPRESSION: 1. Unchanged region of soft tissue prominence/thickening in the posterior larynx involving the true and false cord regions this region (series 7, image 57, series 6, image 57 and series 4 images 87 to 93). This region has ill-defined borders. Assessment is limited on noncontrast imaging. The soft tissue thickening extends posteriorly into the prevertebral soft tissues. Recommend contrast enhanced CT or MRI for further evaluation. 2. Unchanged asymmetric soft tissue prominence in the region of the right submandibular gland/anterior to the right sternocleidomastoid muscle. This correlated with the cystic or necrotic lesion seen on the prior contrast enhanced CT. Assessment is limited on noncontrast imaging. 3. Interval development of bronchovascular thickening and moderate irregular patchy ground-glass opacities in the visualized left upper lobe. Mild shift of the mediastinum towards the left. This may represent post treatment related change, pneumonia or pneumonitis. Recommend correlation with clinical history. Chest CT may be performed for complete assessment. 4. Unchanged bilateral thyroid nodules, left larger than right. 5. Unchanged severe right maxillary and left ethmoid sinus disease.
[2022-07-11 03:22] LABS: C Reactive Protein 291.8 mg/L (0.0-4.9); Magnesium 2.5 mg/dL (1.7-2.3)
[2022-07-11 03:29] LABS: Procalcitonin 0.91 ng/mL (0-0.5)
[2022-07-11 03:55] LABS: Lactic Acid level (Lactate) 4.2 mmol/L (0.5-2.2)
[2022-07-11] MEDS: enoxaparin 40 mg/0.4 mL Syringe SUBCUT (06:00)
[2022-07-11] MEDS: pantoprazole 40 mg SDV IVP (06:00)
--- NOTE | 2022-07-11 06:28 | ECG_ITS ---
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 Measurements Intervals [place] Rate: 104 P: NV: QRS: 40 QRSD: 82 T: 26 QT: 324 QTc: 426 Interpretive Statements SINUS TACHYCARDIA LOW QRS VOLTAGE IN PRECORDIAL LEADS [QRS DEFLECTION < 1.0 mV IN CHEST LEADS] POSSIBLE INFERIOR MYOCARDIAL INFARCTION , PROBABLY OLD [30 ms Q WAVE IN II/aVF] ABNORMAL RHYTHM ECG Compared to ECG 07/11/2022 00:35:24 Low QRS voltage now present Myocardial infarct finding now present Electronically Signed On 07-12-2022 7:34:20 CDT by Giovanna Turcios M.D. [email or web address]
[2022-07-11 07:58] LABS: Troponin 5 6HR 31.71 ng/L (0-15)
[2022-07-11 08:00] LABS: Troponin 5 6HR Delta 7.71 ng/L (0-12)
[2022-07-11 08:07] LABS: Chol HDL Ratio 3.18 mg/dL (1.0-5.00); Cholesterol 127 mg/dL (0-200); HDL Cholesterol 40 mg/dL (60-100); LDL Cholesterol Calculated 70 mg/dL (50-129); LDL HDL Ratio 1.75 RATIO (0.00-3.22); Thyroid Stimulating Hormone 1.32 uIU/mL (0.27-4.20); Triglycerides 83 mg/dL (0-150)
[2022-07-11 08:52] LABS: Estmated Average Glucose 103; Hemoglobin A1C 5.2 % (4.0-6.0)
--- NOTE | 2022-07-11 08:57 | PC.PHAR ---
pt is from [facility]-medications entered are med from the pts mar
[2022-07-11] MEDS: gabapentin 300 mg Capsule 600 MG PO ×2 (09:16→18:18)
[2022-07-11] MEDS: ipratropium-albuterol 3 mL Neb INHALATION ×4 (09:16→20:47)
[2022-07-11] MEDS: piperacillin-tazobactam 3.375 GM in sodium chloride 0.9% (plus) 50 ML IV ×3 (09:16→23:19)
[2022-07-11] MEDS: citalopram 20 mg Tablet 40 MG PO (09:17)
[2022-07-11] MEDS: PHENobarbital 32.4 mg Tablet 64.8 MG PO ×2 (09:17→18:19)
[2022-07-11] MEDS: topiramate 100 mg Tablet PO ×2 (09:17→18:19)
[2022-07-11] MEDS: carBAMazepine 200 mg Tablet PO ×3 (09:19→22:15)
[2022-07-11 10:18] LABS: Add Urine Microscopic? NO; Charge for UA Resulting for Rev
[2022-07-11 10:38] LABS: Bilirubin Urine Neg (Negative); Blood Urine Neg (Negative); Glucose Urine UA Norm (Normal); Ketones Urine Negative (Negative); Nitrate Urine Negative (Negative); Protein Urine Neg (Negative); Urine Appearance Clear (CLEAR); Urine Color Dark Yellow (Yellow); pH Urine 6.5 (5-7)
[2022-07-11 10:39] LABS: Leukocyte Esterase Urine Negative (Negative); Urobilinogen Urine Norm (Negative)
[2022-07-11] MEDS: vancomycin 1,250 MG/250 ML PIGGYBACK 200 MG IV (12:45)
--- NOTE | 2022-07-11 13:14 | PM.MISC ---
Miscellaneous Note Note: Patient has history of supraglottic cancer Dr. Lockhart's note was reviewed, patient has opted for conservative management He does not want radiotherapy or chemotherapy at the bedside who had a lot of questions She had decided to pursue DNR/DNI CODE STATUS, I she is leaning towards hospice care She is not looking forward to tracheostomy Family meeting was done twice ICU nurse care was also present Patient is currently on BiPAP Awake and alert Able to follow commands however very lethargic, facial droop Patient has been living in skilled nursing for last 2 and half years Abdomen soft, Sidhu catheter revealed tea colored urine Lower extremity muscle mass loss Looks dehydrated Plan Patient looks dehydrated Tea colored urine Add D5 normal saline at 75 mill per hour I will resume his PEG tube feeds with close monitoring for retention does not want tracheostomy, leaning towards hospice, needs some time to make final decision Currently patient is on Zosyn for aspiration pneumonia along vancomycin If MRSA PCR is negative will discontinue vancomycin For seizure continue antiepileptics Patient seems very deconditioned DNR/DNI
--- NOTE | 2022-07-11 14:52 | PC.NUTR ---
Received consult for PEG tube feedings. Recommend Jevity 1.2, beginning with 240 mls bolus feed 4 times per day at 8:00/ 12:00/ 4:00/ 8:00 so as to mimic Pt's schedule at [facility], with 60 mls fresh water flush before and after each feeding. Because of aspiration risk, begin with 240 mls, 4x/day and if tolerated, increase to 360 mls, 4x/day. Details in RD notes.
[2022-07-11] MEDS: dextrose 5%-sod chloride 0.9% 1,000 ML 75 ML IV (15:29)
[2022-07-12] VITALS (35 sets, daily range): BP systolic 83–151; BP diastolic 60–79; PULSE 84–102; RESP 10–26; TEMP 36.9–37.1; O2SAT 92–100
[2022-07-12 04:23] LABS: Basophils % 0.3 %; Hematocrit 36.7 % (42.0-52.0); Hemoglobin 11.7 g/dL (11.7-16.6); Lymphocytes # 0.9 10^3/uL (0.8-4.8); Lymphocytes % 6.7 %; Mean Corpuscular HGB Conc 31.9 g/dL (30.0-36.0); Mean Corpuscular Hemoglobin 31.5 pg (28.0-34.0); Mean Corpuscular Volume 98.7 fl (80-94); Mean Platelet Volume 9.9 fL (7.4-10.4); Monocytes # 0.9 10^3/uL (0.2-0.9); Monocytes % 6.5 %; Neutrophils # 11.07 10^3/uL (1.8-7.7); Neutrophils % 84.6 %; Nucleated Red Blood Cells % 0 %; Platelet Count 221 10^3/cmm (130-400); Red Blood Count 3.72 10^6/uL (4.1-5.3); Red Cell Distribution Width 13.2 % (12.1-15.1); White Blood Count 13.1 10^3/uL (4.0-10.0)
[2022-07-12 04:29] LABS: Positive M 1
[2022-07-12 04:39] LABS: Lactate (Lactic Acid level) 1.1 mmol/L (0.5-2.2)
[2022-07-12 04:51] LABS: Alanine Aminotransferase 20 U/L (0-41); Albumin Level 2.6 g/dL (3.5-5.2); Alkaline Phosphatase 79 U/L (40-130); Anion Gap 16.3 (5-19); Aspartate Amino Transferase 29 U/L (0-40); Blood Urea Nitrogen 41 mg/dL (8-23); Calcium 9.2 mg/dL (8.5-10.5); Carbon Dioxide 21 mmol/L (22-29); Chloride 112 mmol/L (98-107); Globulin 3.9 g/dL (1.3-4.6); Glomerular Filtration Rate 60.2 mL/min (90-130); Glucose 131 mg/dL (65-115); Magnesium 2.3 mg/dL (1.7-2.3); Osmolality Calculated 314 mOsm/kg (285-295); Phosphorus 2.9 mg/dL (2.5-4.5); Potassium 3.3 mmol/L (3.5-5.1); Sodium 146 mmol/L (136-145); Total Bilirubin 0.8 mg/dL (0.15-1.2); Total Protein 6.5 g/dL (6.6-8.7)
[2022-07-12 04:53] LABS: Procalcitonin 1.62 ng/mL (0-0.5)
[2022-07-12 05:11] LABS: C Reactive Protein 416.8 mg/L (0.0-4.9)
[2022-07-12] MEDS: pantoprazole 40 mg SDV IVP (05:35)
[2022-07-12] MEDS: enoxaparin 40 mg/0.4 mL Syringe SUBCUT (05:36)
[2022-07-12 05:56] LABS: ABG PH Result 7.39 (7.35-7.45); Arterial Blood Gas Hematocrit 40.7 % (42-52); Base Excess ABG -3.7 mmol/L (-2.0-2.0); Blood Gas Allen Test Pos; Blood Gas Sample Site Radial, right; Blood Gas Sample Type Arterial; HCO3 ABG 20.6 mmol/L (22-26); Oxygen Device BIPAP; PO2 ABG 85.2 mmHg (80.0-100.0)
[2022-07-12] MEDS: gabapentin 300 mg Capsule 600 MG PO (08:17)
[2022-07-12] MEDS: topiramate 100 mg Tablet PO (08:17)
[2022-07-12] MEDS: carBAMazepine 200 mg Tablet PO (08:17)
[2022-07-12] MEDS: citalopram 20 mg Tablet 40 MG PO (08:18)
[2022-07-12] MEDS: PHENobarbital 32.4 mg Tablet 64.8 MG PO (08:18)
[2022-07-12] MEDS: piperacillin-tazobactam 3.375 GM in sodium chloride 0.9% (plus) 50 ML IV (08:19)
[2022-07-12] MEDS: ipratropium-albuterol 3 mL Neb INHALATION ×2 (08:33→13:36)
[2022-07-12] MEDS: dextrose 5%-sod chloride 0.9% 1,000 ML 75 ML IV (08:45)
[2022-07-12] MEDS: vancomycin 1,250 MG/250 ML PIGGYBACK 200 MG IV (11:05)
--- NOTE | 2022-07-12 11:44 | PM.DCS ---
Discharge Providers Date of Admission: 07/11/22 04:29 Date of Discharge: July 12, 2022 Attending Provider at Admission: Clive Travis MD Attending Provider at Discharge: Yamilet Fuchs MD Primary Care Provider: Dennis Helton MD Diagnoses at Discharge Discharge Diagnosis (1) Acute respiratory failure with hypoxia: Status: Acute (2) Sepsis: Status: Acute (3) Metastasis to head and neck lymph node: Status: Acute (4) Primary malignant neoplasm of supraglottis: Status: Acute (5) Aspiration pneumonia: Status: Acute (6) Lactic acidosis: Status: Acute (7) Acute encephalopathy: Status: Acute Reason for Visit Reason for Visit: Aspiration Hospital Course Hospital Course 66-year male with supraglottic cancer, n.p.o., has PEG tube, has been at [facility] for last 2-1/2 years, protein calorie malnourishment, very frail, has refused surgical, radiation and chemotherapy for his cancer, presented to the hospital for worsening of his confusion and acute hypoxic respite failure, he was treated for aspiration pneumonia, he was put on BiPAP, had multiple family meetings, we discussed options such as ENT consult, tracheostomy, continuation of antibiotics, goals of care. His took some time to make a decision however opted for hospice care. She does not want tracheostomy, goals of care were changed as well. Patient has been accepted by hospice at [facility]. He will be discharged back to [facility] on hospice. His seem to have poor insight, it took a lot of time and effort to tell her about her 's condition, stage IV cancer, complications related to PEG tube, deconditioning malnourishment and prognosis. Dr. Helton also agreed with the plan. His CT abdomen pelvis was evaluated by Dr. Mcguire, Dr. Mcguire thinks that his left distal stones are not the source of his hydronephrosis, he thinks these are chronic changes from chronic bladder distention in 2015 it appears the bladder was distended and his ureter was dilated distally even then. Bladder stones were present. He did not recommend ureteral stent. Sidhu catheter was placed which improved his kidney function it drained concentrated tea colored urine. Physical Exam Narrative: Patient is very lethargic and fatigued Facial droop Saliva dripping from left side Slightly more awake and alert Remained on BiPAP Dehydrated PEG tube in place Deconditioned Not able to follow commands appropriately Dehydrated Sidhu catheter draining concentrated urine Discharge Data Studies Completed and Pending Completed Studies During Hospitalization Category Date Time Status CT chest abdomen pelvis [[place] [id number] Cat Scan 07/11/22 02:40 Completed ] Stat CT neck wo con [id number] Stat Cat Scan 07/11/22 02:57 Completed XR chest 1V portable [id number] Stat Exams 07/11/22 00:41 Completed Pending at discharge Category Date Time Status Arterial Blood Gas W/O Coox AM LABS Lab 07/13/22 04:00 Ordered Arterial Blood Gas W/O Coox AM LABS Lab 07/14/22 04:00 Ordered Blood Culture Stat Lab 07/11/22 02:01 Results C Reactive Protein AM LABS Lab 07/13/22 04:00 Ordered C Reactive Protein AM LABS Lab 07/14/22 04:00 Ordered COVID [SARS Covid-2 Antigen] Routine Lab 07/11/22 14:06 Ordered Clostridioides Difficile PCR Routine Lab 07/11/22 05:36 Ordered Complete Blood Count w/Auto AM LABS Lab 07/13/22 04:00 Ordered Complete Blood Count w/Auto AM LABS Lab 07/14/22 04:00 Ordered Comprehensive Metabolic Panel AM LABS Lab 07/13/22 04:00 Ordered Comprehensive Metabolic Panel AM LABS Lab 07/14/22 04:00 Ordered Enteric Bacterial Panel by PCR Routine Lab 07/11/22 05:36 Ordered Enteric Parasite Panel by PCR Routine Lab 07/11/22 05:36 Ordered Immunochemical Fecal OCB Routine Lab 07/11/22 05:36 Ordered Lactate (Lactic Acid level) AM LABS Lab 07/13/22 04:00 Ordered Lactate (Lactic Acid level) AM LABS Lab 07/14/22 04:00 Ordered Lactoferrin Routine Lab 07/11/22 05:36 Ordered Magnesium AM LABS Lab 07/13/22 04:00 Ordered Magnesium AM LABS Lab 07/14/22 04:00 Ordered Phosphorus AM LABS Lab 07/13/22 04:00 Ordered Phosphorus AM LABS Lab 07/14/22 04:00 Ordered Procalcitonin AM LABS Lab 07/13/22 04:00 Ordered Procalcitonin AM LABS Lab 07/14/22 04:00 Ordered Sputum Culture and Gram Stain Stat Lab 07/11/22 00:41 Uncollected Vancomycin Trough Timed Lab 07/13/22 11:00 Ordered Radiology Impressions Chest X-Ray 07/11/22 00:41 IMPRESSION: Patchy asymmetric left upper lobe airspace opacity new from prior suspicious for pneumonia. Chest/Abdomen/Pelvis CT 07/11/22 02:40 IMPRESSION: 1. Volume loss in the left hemithorax with mildly elevated left hemidiaphragm. Moderate left upper lobe patchy regions of ground-glass opacity with coalescence in the superior lingula. Some nodular ground-glass opacities also seen with central lucencies (possible early cavitation). Severe lobar consolidation seen in the left lower lobe. These findings may represent multifocal pneumonia. Metastatic disease or post treatment related pneumonitis cannot be excluded. Recommend correlation with clinical findings and follow-up. 2. Unchanged bilateral thyroid nodules, as noted above. 3. Marked kyphotic curvature of the thoracic spine with generalized osteopenia and lower thoracic and upper lumbar compression fractures. IMPRESSION: 1. Nonspecific tiny region of branching air seen in the left hepatic lobe (series 5, images 73-79). This could represent portal venous gas or pneumobilia. Assessment is limited on noncontrast CT. Contrast enhanced CT may be performed for further assessment. 2. Mildly distended gallbladder with gallstones. 3. Mild constipation. No CT evidence of bowel obstruction. No pneumatosis. 4. Multiple left renal calculi, as noted above. Moderate to severe left hydronephrosis and ureterectasis with left distal ureteral calculus and bladder calculi. 5. Degenerative changes of the thoracolumbar spine and pelvis, as noted above. Postsurgical changes of the left hip and right proximal femur regions, as noted above. Neck CT 07/11/22 02:57 IMPRESSION: 1. Unchanged region of soft tissue prominence/thickening in the posterior larynx involving the true and false cord regions this region (series 7, image 57, series 6, image 57 and series 4 images 87 to 93). This region has ill-defined borders. Assessment is limited on noncontrast imaging. The soft tissue thickening extends posteriorly into the prevertebral soft tissues. Recommend contrast enhanced CT or MRI for further evaluation. 2. Unchanged asymmetric soft tissue prominence in the region of the right submandibular gland/anterior to the right sternocleidomastoid muscle. This correlated with the cystic or necrotic lesion seen on the prior contrast enhanced CT. Assessment is limited on noncontrast imaging. 3. Interval development of bronchovascular thickening and moderate irregular patchy ground-glass opacities in the visualized left upper lobe. Mild shift of the mediastinum towards the left. This may represent post treatment related change, pneumonia or pneumonitis. Recommend correlation with clinical history. Chest CT may be performed for complete assessment. 4. Unchanged bilateral thyroid nodules, left larger than right. 5. Unchanged severe right maxillary and left ethmoid sinus disease. Laboratory Results WBC 13.1 10^3/uL (4.0-10.0) H 07/12/22 03:26 RBC 3.72 10^6/uL (4.1-5.3) L 07/12/22 03:26 Hgb 11.7 g/dL (11.7-16.6) 07/12/22 03:26 Hct 36.7 % (42.0-52.0) L 07/12/22 03:26 MCV 98.7 fl (80-94) H 07/12/22 03:26 MCH 31.5 pg (28.0-34.0) 07/12/22 03:26 MCHC 31.9 g/dL (30.0-36.0) 07/12/22 03:26 RDW 13.2 % (12.1-15.1) 07/12/22 03:26 Plt Count 221 10^3/cmm (130-400) 07/12/22 03:26 MPV 9.9 fL (7.4-10.4) 07/12/22 03:26 Neut % (Auto) 84.6 % 07/12/22 03:26 Lymph % (Auto) 6.7 % 07/12/22 03:26 [place] % (Auto) 6.5 % 07/12/22 03:26 Eos % (Auto) 0.0 % 07/12/22 03:26 Baso % (Auto) 0.3 % 07/12/22 03:26 Neut # (Auto) 11.07 10^3/uL (1.8-7.7) H 07/12/22 03:26 Lymph # (Auto) 0.9 10^3/uL (0.8-4.8) 07/12/22 03:26 [place] # (Auto) 0.9 10^3/uL (0.2-0.9) 07/12/22 03:26 Eos # (Auto) 0.0 10^3/uL (0.0-0.8) 07/12/22 03:26 Baso # (Auto) 0.0 10^3/uL (0.0-0.1) 07/12/22 03:26 Nucleated RBC % (auto) 0 % 07/12/22 03:26 Total Counted 100 (0-100) 07/11/22 00:30 Atypical Lymphs % 1.0 % (0-5) 07/11/22 00:30 Absolute Neutrophils 10.0 10^3/cmm (1.4-6.5) H 07/11/22 00:30 Segmented Neutrophils 47 % 07/11/22 00:30 Abs Segm Neuts (Man) 5.6 10/cmm (1.6-7.1) 07/11/22 00:30 Band Neutrophils 36.0 % 07/11/22 00:30 Abs Band Neuts (Man) 4.3 10^3/cmm (0.0-1.2) H 07/11/22 00:30 Absolute Lymphocytes 1.3 10^3/cmm (1.2-3.4) 07/11/22 00:30 Lymphocytes (Manual) 10 % 07/11/22 00:30 Monocytes (Manual) 6.0 % 07/11/22 00:30 Absolute Monocytes 0.7 10^3/cmm (0.1-0.6) H 07/11/22 00:30 Eosinophils (Manual) 0 % 07/11/22 00:30 Absolute Eosinophils 0.0 10^3/cmm (0.0-0.7) 07/11/22 00:30 Basophils (Manual) 0.0 % 07/11/22 00:30 Absolute Basophils 0.0 10^3/cmm (0.0-0.2) 07/11/22 00:30 Nucleated RBCs # 0.0 /100WBC 07/12/22 03:26 Toxic Vacuolation Trace 07/11/22 00:30 Dohle Bodies Trace 07/11/22 00:30 Platelet Estimate Normal (Normal) 07/11/22 00:30 Specimen Type Arterial 07/12/22 04:00 Sample Site Radial, right 07/12/22 04:00 ABG pH 7.39 (7.35-7.45) 07/12/22 04:00 ABG pCO2 34.0 mmHg (35-45) L 07/12/22 04:00 ABG pO2 85.2 mmHg (80.0-100.0) 07/12/22 04:00 ABG HCO3 20.6 mmol/L (22-26) L 07/12/22 04:00 ABG Base Excess -3.7 mmol/L (-2.0-2.0) L 07/12/22 04:00 Trell Test Pos 07/12/22 04:00 Hematocrit 40.7 % (42-52) L 07/12/22 04:00 Hgb O2 Saturation 87.8 % (95-100) L 07/11/22 00:43 Carboxyhemoglobin 1.7 %THgb (0.4-20.1) 07/11/22 00:43 Methemoglobin 0.6 % (0.4-1.5) 07/11/22 00:43 Total Hemoglobin 15.3 g/dL (14-18) 07/11/22 00:43 O2 Delivery Device Bipap 07/12/22 04:00 O2 Liters/Min 15.0 % 07/11/22 00:43 FiO2 40.0 % 07/12/22 04:00 Raw Stock Machine Feeder ID adriane 07/12/22 04:00 Sodium 146 mmol/L (136-145) H 07/12/22 03:26 Potassium 3.3 mmol/L (3.5-5.1) L 07/12/22 03:26 Chloride 112 mmol/L (98-107) H 07/12/22 03:26 Carbon Dioxide 21 mmol/L (22-29) L 07/12/22 03:26 Anion Gap 16.3 (5-19) 07/12/22 03:26 BUN 41 mg/dL (8-23) H 07/12/22 03:26 Creatinine 1.2 mg/dL (0.7-1.2) 07/12/22 03:26 GFR Calculation 60.2 mL/min (90-130) L 07/12/22 03:26 Glucose 131 mg/dL (65-115) H 07/12/22 03:26 Estimat Average Glucose 103 07/11/22 07:13 Hemoglobin A1c 5.2 % (4.0-6.0) 07/11/22 07:13 Calculated Osmolality 314 mOsm/kg (285-295) H 07/12/22 03:26 Lactic Acid 5.0 mmol/L (0.5-2.2) H* 07/11/22 00:30 Lactic Acid (Sepsis) 4.2 mmol/L (0.5-2.2) H* 07/11/22 03:22 Lactate 1.1 mmol/L (0.5-2.2) 07/12/22 03:26 Calcium 9.2 mg/dL (8.5-10.5) 07/12/22 03:26 Phosphorus 2.9 mg/dL (2.5-4.5) 07/12/22 03:26 Magnesium 2.3 mg/dL (1.7-2.3) 07/12/22 03:26 Total Bilirubin 0.8 mg/dL (0.15-1.2) 07/12/22 03:26 AST 29 U/L (0-40) 07/12/22 03:26 ALT 20 U/L (0-41) 07/12/22 03:26 Alkaline Phosphatase 79 U/L (40-130) 07/12/22 03:26 Troponin T Baseline 24 ng/L (0-15) H 07/11/22 00:30 Troponin T 120 Minute 21.80 ng/L (0-15) H 07/11/22 03:22 Delta Troponin T -2.20 ABS# (0-10) L 07/11/22 03:22 Troponin T Hi Sens 6Hr 31.71 ng/L (0-15) H 07/11/22 07:13 Troponin T Hi Sens 6Hr Delta 7.71 ng/L (0-12) 07/11/22 07:13 C-Reactive Protein 416.8 mg/L (0.0-4.9) H 07/12/22 03:26 NT-Pro-B Natriuret Pep 2645 pg/mL (0-125) H 07/11/22 00:30 Total Protein 6.5 g/dL (6.6-8.7) L 07/12/22 03:26 Albumin 2.6 g/dL (3.5-5.2) L 07/12/22 03:26 Globulin 3.9 g/dL (1.3-4.6) 07/12/22 03:26 Triglycerides 83 mg/dL (0-150) 07/11/22 07:13 Cholesterol 127 mg/dL (0-200) 07/11/22 07:13 LDL Cholesterol, Calc 70 mg/dL (50-129) 07/11/22 07:13 HDL Cholesterol 40 mg/dL (60-100) L 07/11/22 07:13 LDL/HDL Ratio 1.75 RATIO (0.00-3.22) 07/11/22 07:13 Cholesterol/HDL Ratio 3.18 mg/dL (1.0-5.00) 07/11/22 07:13 Procalcitonin 1.62 ng/mL (0-0.5) H 07/12/22 03:26 TSH 1.32 uIU/mL (0.27-4.20) 07/11/22 07:13 Urine Color Dark yellow (Yellow) 07/11/22 10:00 Urine Appearance Clear (CLEAR) 07/11/22 10:00 Urine pH 6.5 (5-7) 07/11/22 10:00 Ur Specific [place] 1.010 (1.005-1.030) 07/11/22 10:00 Urine Protein Neg (Negative) 07/11/22 10:00 Urine Glucose (UA) Norm (Normal) 07/11/22 10:00 Urine Ketones Negative (Negative) 07/11/22 10:00 Urine Blood Neg (Negative) 07/11/22 10:00 Urine Nitrate Negative (Negative) 07/11/22 10:00 Urine Bilirubin Neg (Negative) 07/11/22 10:00 Urine Urobilinogen Norm mg/dL (Negative) 07/11/22 10:00 Ur Leukocyte Esterase Negative (Negative) 07/11/22 10:00 Vitals Last Vital Signs Temp 98.5 F 07/12/22 11:22 Pulse 86 07/12/22 08:33 Resp 12 07/12/22 08:33 BP 102/79 07/12/22 08:00 Pulse Ox 100 07/12/22 08:33 O2 Del Method 07/12/22 08:33 O2 Flow Rate 15 07/11/22 00:28 FiO2 40 07/12/22 08:33 Discharge Plan Discharge Patient Disposition: Xfer SNF Condition: Stable Prescriptions: Continued acetaminophen [Tylenol] 325 mg Tablet 650 mg PO Q6H PRN (Reason: Pain) magnesium hydroxide [Milk of Magnesia] 400 mg/5 mL Suspension 30 ml PO DAILY PRN (Reason: Constipation) bisacodyl 10 mg Suppository 10 mg ID DAILY PRN (Reason: Constipation) Fleet Enema 19-7 gram/118 mL Enema 118 ml ID DAILY PRN (Reason: Constipation) citalopram 40 mg tablet 40 mg PO DAILY@08 Robitussin 100 mg/5 mL Liquid 200 mg PO Q4H PRN (Reason: Cough) carbamazepine 200 mg tablet 200 mg PO TID@08,16,20 Dulcolax (bisacodyl) 5 mg Tablet,Delayed Release (Dr/Ec) 10 mg PO DAILY PRN (Reason: Constipation) topiramate 100 mg tablet 100 mg PO BID@08,20 fluticasone propionate [Flonase Allergy Relief] 50 mcg/actuation spray,suspension 2 spray intranasal BEDTIME@20 Rx Instructions: administer into each nostril Discontinued gabapentin 600 mg tablet 600 mg PO BID@08,20 phenobarbital 64.8 mg tablet 64.8 mg PO BID@08,20 potassium chloride 20 mEq tablet,ER particles/crystals 20 meq PO DAILY@08 Discharge Orders: Discharge Order (Routine); Ordered 07/12/22 Ordered By: Yamilet Fuchs Referrals: [facility] [Outside] [facility] [Outside] Dennis Helton MD [Primary Care Provider] - Discharge Diet: As Directed Discharge Activity: Bedrest Patient Instructions: Opioid Safety Discharge Attestations Time Spent in Discharge Care*: less than 30 min Quality Metrics Clinical Quality Measures [ No reported AMI, CVA or VTE this stay] Coding Level of Care Code Acute Chg FW DC note Diagnoses Acute respiratory failure with hypoxia J96.01 Sepsis A41.9 Metastasis to head and neck lymph node C77.0 Primary malignant neoplasm of supraglottis C32.1 Aspiration pneumonia J69.0 Lactic acidosis E87.2 Acute encephalopathy G93.40
[2022-07-12] MEDS: lidocaine 2% viscous 1.667 ML, diphenhydrAMINE oral liq 4.165 MG, aluminum-mag hydrox-s... MUCOUS MEM (12:00)
[2022-07-12 12:06] LABS: SARS Covid-2 Antigen Negative (Negative)
--- NOTE | 2022-07-12 12:28 | PC.CHAP ---
Pastoral Care Encounter/Spiritual Assessment Type of Contact [] Declined manager material visit [] Patient/Family/Request visit [] Outpatient visit [] Follow-up visit [] Physician referral [] Code/Alert [x] Routine visit [] Staff referral [] Actively dying [] Patient sleeping [x] Family support [] [] Out of room [] Palliative care [] [] Receiving care in room [] Pre-surgical visit [] Trauma [] Long length of stay [x] ICU visit [] Other: Relational/Emotional Strength [] Patient feels connected with others/family/visitors/staff [] Distress [] Loneliness/isolation [] Abandonment Spirituality of Patient [] Person of Gin [] Attends Orthodoxy of their Gin [] Believes in Prayer [] Reads Bible or Mandaen materials [] There are Spiritual issues to be addressed Clinical Massage Therapist Interventions [x] Prayer [] Active listening [] Non-anxious presence [] Spiritual/emotional support [] Crisis/trauma care [] Spiritual counseling [] Bereavement support [] Provided bereavement packet [] Provided Bible/devotional materials [] Provided toy/stuffed animal, coloring book to patient or family member [] Provided Communion [] Anointing/[place] [] Salvation [x] Completed spiritual assessment [] Other: Impact on Illness or Injury [] Angry [] Fearful [] Anxious [] Often cries [] Exhaustion [] Unable to work [] Unable to attend quaker [] Unable to walk/stand [] Unable to read [] Unable to drive [] Unable to eat/drink [] Unable to sleep [] Unable to be with family [] Patient intubated [] Other: Summary PT had eyes open ... being moved to home for care Time spent with patient
--- NOTE | 2022-07-12 12:30 | PC.NURSE ---
was educated multiple times this shift about husbands condition and hospice care. When patient was taken off of bipap o2 stayed around 73% on 6L of nasal cannula. was aware.
--- NOTE | 2022-07-12 14:00 | PC.NURSE ---
Report was called to Ed[facility]rier and EMS picked patient up around 1400. in room and followed patient out.
== END 2022-07-12 14:00 | disposition hospice, inpatient (51) | DRG 871 ==
LOC: ER 02:20 → ICU 04:30
PROVIDERS: Admitting Provider Family Medicine; Emergency Provider Emergency Medicine; PCP Internal Medicine; Visit Provider Internal Medicine
DX: A41.9 Sepsis, unspecified organism (principal); J69.0 Pneumonitis due to inhalation of food and vomit; J96.01 Acute respiratory failure with hypoxia; C77.0 Secondary and unspecified malignant neoplasm of lymph nodes of head, face and neck; E46 Unspecified protein-calorie malnutrition; G93.40 Encephalopathy, unspecified; E87.2 Acidosis; N17.9 Acute kidney failure, unspecified; C32.1 Malignant neoplasm of supraglottis; Z68.22 Body mass index [BMI] 22.0-22.9, adult; Z93.1 Gastrostomy status; G40.909 Epilepsy, unspecified, not intractable, without status epilepticus; Z86.73 Personal history of transient ischemic attack (TIA), and cerebral infarction without residual deficits; I10 Essential (primary) hypertension; Z96.642 Presence of left artificial hip joint; Z87.891 Personal history of nicotine dependence; N21.0 Calculus in bladder; Z51.5 Encounter for palliative care; Z66 Do not resuscitate
CPT/HCPCS: 36415; 36600; 70490; 71045; 71250; 74176; 80053; 80061; 81003; 82803; 82805; 83036; 83605; 83735; 83880; 84100; 84145; 84443; 84484; 85007; 85025; 86140; 87040; 87426; 87641; 93005; 94640; 94660; 96365; 96367; 96372; 99291; C9113; J1650; J2543; J3370; J7030; J7050